=== PATIENT | male | born 1960 | race Two or more races ===

== ENCOUNTER 2024-03-23 13:09 | Outpatient (AMB) | payer MEDICAID, SELFPAY ==
[2024-03-23 13:30] VITALS: BP 121/68; PULSE 90; RESP 18; TEMP 36.7; O2SAT 96; BMI 20.6
--- NOTE | 2024-03-23 13:30 | PD.RESCLINIC ---
Vital Signs 03/23/24 13:30 Height 1.83 m Height Method Stated Weight 69.173 kg Weight Measurement Method Standing Scale BMI 20.6 BP 121/68 Blood Pressure Source Automatic Cuff Blood Pressure Location Left Upper Arm Position Sitting Respiration 18 Pulse 90 Pulse Source Monitor Temp 98.1 F Temp Source Oral Pulse Oximetry (%) 96 Oxygen Delivery Method Room Air Allergies/Meds Allergies & Medications Allergies No Known Allergies Allergy (Verified 03/23/24 13:31) Medication Reconciliation blood-glucose sensor (FreeStyle Meg 3 Sensor device) #2 ea 11/03/23 [Rx Confirmed 03/23/24] ferrous sulfate 325 mg (65 mg iron) tablet,delayed release 325 mg PO TID #90 tabs 11/03/23 [Rx Confirmed 03/23/24] insulin degludec 100 unit/mL (3 mL) subcutaneous pen (Tresiba FlexTouch U-100 insulin) 15 unit (0.15 mL) subcut QHS 90 days #15 mL 11/03/23 [Rx Confirmed 03/23/24] ketoconazole 2 % topical cream 1 applic topical BID #60 grams 11/03/23 [Rx Confirmed 03/23/24] lisinopril 40 mg tablet 40 mg PO QDAY #30 tabs 11/03/23 [Rx Confirmed 03/23/24] pen needle, diabetic 29 gauge x 1/2 (Comfort EZ Pen [place]) #100 ea 11/03/23 [Rx Confirmed 03/23/24] polyethylene glycol 3350 17 gram/dose oral powder 4 g PO QDAY #238 grams 11/03/23 [Rx Confirmed 03/23/24] sennosides 8.6 mg capsule (senna) 8.6 mg PO QDAY PRN constipation #30 caps 11/03/23 [Rx Confirmed 03/23/24] erythromycin 5 mg/gram (0.5 %) eye ointment 0.5 inch ophthalmic (eye) BID #3.5 grams 12/11/23 [Rx Confirmed 03/23/24] atorvastatin 40 mg tablet 40 mg PO QHS #30 tabs 03/23/24 [Rx] fluconazole 200 mg tablet 200 mg PO TID #90 tabs 03/23/24 [Rx] gabapentin 100 mg capsule 300 mg (3 x 100 mg) PO BID 30 days #180 caps 03/23/24 [Rx] semaglutide 14 mg tablet (Rybelsus) 14 mg PO QDAY #30 tabs 03/23/24 [Rx] NIC Intake Visit Data Collection New Patient or Established: Established Patient (seen at [facility] within 3 years) Seen by Clinical Staff ONLY (RN/NIC): No Pain Present Currently: No Pain scale:: 0 Pain Scale Used: Schrader-Mccann/Numerical PCP or OBGYN visit in last 3 months: Yes Do You Feel Safe at Home: Yes Authorities Contacted: N/A Smoking Status Smoking Status: Former smoker Immunization / Flu Flu Vaccine in the Last 12 Months: No Flu Vaccine Exclusion Criteria: No Exclusion Criteria Past Medical History Past Medical History NEUROLOGIC: Negative Neurological Disorders or Seizures CARDIAC: Positive Cardiac Disorders and Hypertension; Negative Congestive Heart Failure RESPIRATORY: Negative Chronic Obstructive Pulmonary Disease (COPD) GASTROINTESTINAL: Negative Gastrointestinal Disorders or Hepatitis GENITOURINARY: Negative Genitourinary Disorders or Renal Disease ENT: Negative Cataracts, Glaucoma, Blind, Retinal Detachment, Macular Degeneration, Ear Infection or Deafness ENDOCRINE: Positive Endocrine Disorders and Diabetes Mellitus Type 2; Negative Diabetes Mellitus Type 1 HEMATOLOGIC: Positive Blood Disorders and Anemia OTHER HISTORY: Positive Chicken Pox, Measles and Mumps; Negative Hospitalization, Autoimmune Disease, Down Syndrome, Developmental Delay, Shingles, Falls, Blood Transfusions, Anesthesia Reactions, Organ Transplant, Chemotherapy, Radiation Therapy, Hyperbaric Therapy, MRSA, VRSA, Vancomycin-Resistant Enterococci, Clostridium Difficile or Cancer Family History FAMILY HISTORY: Positive Family Gastrointestinal Problems; Negative Family Psychiatric Problems, Family Respiratory Disorders, Family Cardiac Disorders, Family Cancer, Family Surgery or Family Anesthesia Reaction Surgical History SURGICAL: Negative Organ Transplant Social History SMOKING STATUS: Smoking status: Former smoker ALCOHOL: Alcohol Intake: Never HOUSING: Housing: House LIVES WITH: Lives With: Spouse Patient Portal Questionaires PHQ-9 PHQ-2 Over the last 2 weeks, how often have you been bothered by any of the following problems? 1. Little interest or pleasure in doing things: not at all PHQ-9 8. Moving or speaking so slowly that other people could have noticed? - Or the opposite - being so fidgety or restless that you have been moving around a lot more than usual: not at all Source: Developed by Drs. Charly Elizabeth, Mima Blevins, Jonathan Rodriguez and colleagues, with an educational lili from [employer]. Social History Living Situation History Housing: House Housing Other:: Lives w/ Tobacco History Smoking Status: Former smoker Alcohol History Alcohol Intake: Never Domestic Abuse History Do You Feel Safe at Home: Yes Review of Systems Report any current symptoms Only answer those that you have currently: Past Medical History Past Medical History Have you ever been diagnosed with any of the following: Neurological Problems Seizures: No Cardiology Problems Congestive Heart Failure: No Hypertension: Yes Respiratory Problems Chronic Obstructive Pulmonary Disease (COPD): No Stomache/Intestinal Problems Hepatitis: No Genital/Urinary Problems Renal Disease: No Head,Eye,Nose,Throat Problems Cataracts: No Glaucoma: No Blind: No Retinal Detachment: No Macular Degeneration: No Chronic Ear Infections: No Deafness: No Endocrine Problems Diabetes Mellitus Type 1: No Diabetes Mellitus Type 2: Yes Blood Problems Anemia: Yes Other Problems Hospitalization: No Autoimmune Disease: No Down Syndrome: No Developmental Delay: No Shingles: No Falls: No Blood Transfusions: No Anesthesia Reactions: No Organ Transplant: No Chemotherapy: No Radiation Therapy: No Hyperbaric Therapy: No MRSA: No VRSA: No Vancomycin-Resistant Enterococci: No Chicken Pox: Yes Measles: Yes Mumps: Yes Clostridium Difficile: No Cancer: No History of Present Illness HPI Narrative 63-year-old male with past medical history of diabetes type 2 and valley fever [facility] his 3-month follow-up appointment and for x-ray results. Patient's foot x-ray did not show any osteomyelitis. Patient stated that he saw his senior managing director around 3 weeks ago and got his toenails clipped and that his senior managing director told him that everything was okay at this time. Today's patient's toe did not look discolored and was not tender on palpation. Patient also stated that he saw his information technology advisor around 1 month ago who orders multiple labs for him. I reviewed the patient's labs with him. Patient stated that his information technology advisor increased his dosage of Jardiance to 25 mg daily. He also mentioned that he saw his astronomy department chair who stated that he needs to be on fluconazole indefinitely at this time. Patient has an pellet press operator appointment due on April. He states that he is up-to-date on all his vaccines. And that his colonoscopy was last year and everything was within normal limits. No other complaints at this time. Review of Systems Review of Systems Narrative Review of Systems: Constitutional: Denies sweats, Denies weight loss/gain, Denies fever, Denies chills. HEENT: Denies hearing loss, Denies ear pain, Denies postnasal drip, Denies double vision, Denies blurry vision. Respiratory: Denies shortness of breath, Denies cough, Denies wheezing. Cardiovascular: Denies chest pain, Denies palpitations, Denies sudden loss of consciousness. GI: Denies blood in stool, Denies constipation, Denies abdominal pain, Denies difficulty swallowing, Denies nausea or vomit. : Denies urinary incontinence, Denies pain while urinating, Denies increased urinary frequency. MSK: Denies joint pain, Denies joint swelling, Denies numbness. Skin: Denies rash, Denies itching, Denies easy bruising. Neuro: Denies headaches, Denies dizziness, Denies seizures. Objective/Exam General General Appearance: alert, in no apparent distress and cooperative Head Head exam: atraumatic and normocephalic Eye Eye exam: Present normal appearance, PERRL and EOMI ENT ENT exam: Present normal exam, normal oropharynx and mucous membranes dry Neck Neck exam: Present normal inspection, full ROM and trachea midline Resp Respiratory exam: Present normal lung sounds bilaterally Card Cardiovascular exam: Present regular rate, normal rhythm and normal heart sounds Abdominal Abdominal exam: Present soft and normal bowel sounds Extremities Extremities exam: Present normal inspection and full ROM Exp LE Foot/toe exam: Present other (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 ) Neuro Neurological exam: Present alert, oriented X3 and CN II-XII intact Psych Psychiatric exam: Present normal affect and normal mood Assessment & Plan Diagnosis / Problem List (1) Diabetes mellitus: Status: Acute Qualifiers: Diabetes mellitus complication status: without complication Diabetes mellitus terminal operations supervisor insulin use: with fdc use Diabetes mellitus type: type 2 Qualified Code(s): E11.9 - Type 2 diabetes mellitus without complications; Z79.4 - computer terminal operator (current) use of insulin Assessment & Plan: -Last A1c on 02/06/24 was 8.2% -Patient states his sugars have been well controlled and he has not done anything different -His information technology advisor increased his Jiardance to 25mg -Last saw his senior managing director 3 weeks ago -Will see ophtalmologist in April Plan: -Continue jardiance 25mg -Increased Rybelsus to 14mg -Continue Insulin 15 mg qHS, advised to titrate down by one unit each day is BG in morning is less than 100. (2) Hyperlipemia: Status: Acute Qualifiers: Hyperlipidemia type: mixed hyperlipidemia Qualified Code(s): E78.2 - Mixed hyperlipidemia Assessment & Plan: -Cholesterol 223, LDL 160, HDL 38 on 02/06/2024 Plan: -Start Atorvastatin 40mg HS (3) Coccidioidomycosis, chronic pulmonary: Status: Acute Assessment & Plan: -Per patient, he states that his astronomy department chair stated he needs treatment indefinitely for his Cocci. Plan: -Refill fluconazol -Will ask for documents from pulmonoligist. Additional Assessment Attending note: I, Enoch Headley MD, attest that I was physically present for the paulino portions of the service and evaluated the patient with the resident and I reviewed and discussed the case with the resident and agree with the resident's findings and plans of care as documented above. Follow-up visit. Review of prior x-ray revealed no evidence of osteomyelitis. Did see podiatry approximately 3 weeks ago. Following with nephrology. Dose of Jardiance increased to 25 mg daily. Skate Maker wants patient on fluconazole indefinitely. Diet, exercise, footcare, eye care reviewed. We will also increase the dose of Rybelsus. Start atorvastatin for hyperlipidemia. Enoch Headley MD Physician Billing Established Patient Established Patient: E/M Level 3-CPT 45107 Office Procedures [facility] Level of Care Nursing/Assessment Patient Status: Established Patient Nursing Assessment/Reassessment: Medication Reconciliation, Update PMH in EMR and Vital Signs Coordination of Care: Complex Care and Chronic Disease 1-5, Education Complex Pt/Fam and Staff clarify orders Established Patient Charge Established Patient Point Assignment: 85 Established Patient Point Charge: EP Level 3 (80-115)
== END 2024-03-23 14:22 | disposition home or self-care (01) ==
LOC: HODAHC 13:09
PROVIDERS: PCP Internal Medicine; Referring Provider Internal Medicine; Supervising Provider Internal Medicine
DX: B38.9 Coccidioidomycosis, unspecified (principal); E11.9 Type 2 diabetes mellitus without complications; E78.5 Hyperlipidemia, unspecified; Z79.4 Long term (current) use of insulin; Z79.84 Long term (current) use of oral hypoglycemic drugs
CPT/HCPCS: 99213; G0463

== ENCOUNTER 2024-04-27 14:01 | Outpatient (AMB) | payer MEDICAID, SELFPAY ==
--- NOTE | 2024-04-27 14:08 | PD.RESCLINIC ---
Vital Signs 04/27/24 14:09 Height 1.83 m Height Method Stated Weight 66.224 kg Weight Measurement Method Standing Scale BMI 19.8 BP 99/65 Blood Pressure Source Automatic Cuff Blood Pressure Location Left Upper Arm Position Sitting Respiration 16 Pulse 74 Pulse Source Monitor Temp 97.9 F Temp Source Temporal Artery Scan Pulse Oximetry (%) 98 Oxygen Delivery Method Room Air Allergies/Meds Allergies & Medications Allergies No Known Allergies Allergy (Verified 04/27/24 14:09) Medication Reconciliation blood-glucose sensor (FreeStyle Meg 3 Sensor device) #2 ea 11/03/23 [Rx Confirmed 03/23/24] ferrous sulfate 325 mg (65 mg iron) tablet,delayed release 325 mg PO TID #90 tabs 11/03/23 [Rx Confirmed 04/27/24] insulin degludec 100 unit/mL (3 mL) subcutaneous pen (Tresiba FlexTouch U-100 insulin) 15 unit (0.15 mL) subcut QHS 90 days #15 mL 11/03/23 [Rx Confirmed 04/27/24] ketoconazole 2 % topical cream 1 applic topical BID #60 grams 11/03/23 [Rx Confirmed 04/27/24] lisinopril 40 mg tablet 40 mg PO QDAY #30 tabs 11/03/23 [Rx Confirmed 04/27/24] pen needle, diabetic 29 gauge x 1/2 (Comfort EZ Pen [place]) #100 ea 11/03/23 [Rx Confirmed 03/23/24] polyethylene glycol 3350 17 gram/dose oral powder 4 g PO QDAY #238 grams 11/03/23 [Rx Confirmed 04/27/24] sennosides 8.6 mg capsule (senna) 8.6 mg PO QDAY PRN constipation #30 caps 11/03/23 [Rx Confirmed 04/27/24] erythromycin 5 mg/gram (0.5 %) eye ointment 0.5 inch ophthalmic (eye) BID #3.5 grams 12/11/23 [Rx Confirmed 04/27/24] fluconazole 200 mg tablet 200 mg PO TID #90 tabs 03/23/24 [Rx Confirmed 04/27/24] atorvastatin 40 mg tablet 40 mg PO QHS #30 tabs 04/27/24 [Rx] gabapentin 100 mg capsule 300 mg (3 x 100 mg) PO TID 30 days #270 caps 04/27/24 [Rx] semaglutide 14 mg tablet (Rybelsus) 14 mg PO QDAY #30 tabs 04/27/24 [Rx] MA Intake Visit Data Collection New Patient or Established: Established Patient (seen at [facility] within 3 years) Pain Present Currently: No Pain Scale Used: Schrader-Mccann/Numerical Php Wordpress Developer Required: No PCP or OBGYN visit in last 3 months: No Hx Now: No Do You Feel Safe at Home: Yes Authorities Contacted: N/A Smoking Status Smoking Status: Former smoker Immunization / Flu Flu Vaccine in the Last 12 Months: Yes Flu Vaccine Exclusion Criteria: Already Received Past Medical History Past Medical History NEUROLOGIC: Negative Neurological Disorders or Seizures CARDIAC: Positive Cardiac Disorders and Hypertension; Negative Congestive Heart Failure RESPIRATORY: Negative Chronic Obstructive Pulmonary Disease (COPD) GASTROINTESTINAL: Negative Gastrointestinal Disorders or Hepatitis GENITOURINARY: Negative Genitourinary Disorders or Renal Disease ENT: Negative Cataracts, Glaucoma, Blind, Retinal Detachment, Macular Degeneration, Ear Infection or Deafness ENDOCRINE: Positive Endocrine Disorders and Diabetes Mellitus Type 2; Negative Diabetes Mellitus Type 1 HEMATOLOGIC: Positive Blood Disorders and Anemia OTHER HISTORY: Positive Chicken Pox, Measles and Mumps; Negative Hospitalization, Autoimmune Disease, Down Syndrome, Developmental Delay, Shingles, Falls, Blood Transfusions, Anesthesia Reactions, Organ Transplant, Chemotherapy, Radiation Therapy, Hyperbaric Therapy, MRSA, VRSA, Vancomycin-Resistant Enterococci, Clostridium Difficile or Cancer Family History FAMILY HISTORY: Positive Family Gastrointestinal Problems; Negative Family Psychiatric Problems, Family Respiratory Disorders, Family Cardiac Disorders, Family Cancer, Family Surgery or Family Anesthesia Reaction Surgical History SURGICAL: Negative Organ Transplant Social History SMOKING STATUS: Smoking status: Former smoker ALCOHOL: Alcohol Intake: Never HOUSING: Housing: House LIVES WITH: Lives With: Spouse Patient Portal Questionaires PHQ-9 PHQ-2 Over the last 2 weeks, how often have you been bothered by any of the following problems? 1. Little interest or pleasure in doing things: not at all PHQ-9 8. Moving or speaking so slowly that other people could have noticed? - Or the opposite - being so fidgety or restless that you have been moving around a lot more than usual: not at all Source: Developed by Drs. Charly Elizabeth, Mima Blevins, Jonathan Rodriguez and colleagues, with an educational lili from [employer]. Social History Living Situation History Housing: House Housing Other:: Lives w/ Tobacco History Smoking Status: Former smoker Alcohol History Alcohol Intake: Never Domestic Abuse History Do You Feel Safe at Home: Yes Review of Systems Report any current symptoms Only answer those that you have currently: Past Medical History Past Medical History Have you ever been diagnosed with any of the following: Neurological Problems Seizures: No Cardiology Problems Congestive Heart Failure: No Hypertension: Yes Respiratory Problems Chronic Obstructive Pulmonary Disease (COPD): No Stomache/Intestinal Problems Hepatitis: No Genital/Urinary Problems Renal Disease: No Head,Eye,Nose,Throat Problems Cataracts: No Glaucoma: No Blind: No Retinal Detachment: No Macular Degeneration: No Chronic Ear Infections: No Deafness: No Endocrine Problems Diabetes Mellitus Type 1: No Diabetes Mellitus Type 2: Yes Blood Problems Anemia: Yes Other Problems Hospitalization: No Autoimmune Disease: No Down Syndrome: No Developmental Delay: No Shingles: No Falls: No Blood Transfusions: No Anesthesia Reactions: No Organ Transplant: No Chemotherapy: No Radiation Therapy: No Hyperbaric Therapy: No MRSA: No VRSA: No Vancomycin-Resistant Enterococci: No Chicken Pox: Yes Measles: Yes Mumps: Yes Clostridium Difficile: No Cancer: No History of Present Illness HPI Narrative 63-year-old male with past medical history of diabetes type 2 and valley fever who [facility] for his F/U after starting atorvastatin. Patient states he has been feeling well with no new complaints. Satated he had a good holidays and did not deviate from his eating habits. His BG was checked on his free style meg geni and ranged from 100-160 with avg A1c of 7%. He mentioned he has been using only 10units of insulin glargine at night and has been decreasing it as mentioned on previous visit with better control of his BG. HE has not had any muscle aches since he started atorvastatin and has tolerated it well. Patient saw his face burler yesterday and will be getting a procedure done in the upcoming months as per patient and as per patient everything was well on this visit. He is still experiencing burning pain in his feet likely due to neuropathy. HAs also noticed SOB will working since he was diagnosed with Valley fever, but no cough, fever, or LE swelling. No other complaint at this time. Will have labs done by his sound technician supervisor in the next month. Review of Systems Review of Systems Narrative Review of Systems: Constitutional: Denies sweats, Denies weight loss/gain, Denies fever, Denies chills. HEENT: Denies hearing loss, Denies ear pain, Denies postnasal drip, Denies double vision, Denies blurry vision. Respiratory: Admits shortness of breath, Denies cough, Denies wheezing. Cardiovascular: Denies chest pain, Denies palpitations, Denies sudden loss of consciousness. GI: Denies blood in stool, Denies constipation, Denies abdominal pain, Denies difficulty swallowing, Denies nausea or vomit. : Denies urinary incontinence, Denies pain while urinating, Denies increased urinary frequency. MSK: Denies joint pain, Denies joint swelling, Denies numbness. Skin: Denies rash, Denies itching, Denies easy bruising. Neuro: Denies headaches, Denies dizziness, Denies seizures, Admits neuropathy pain. Objective/Exam General General Appearance: alert, in no apparent distress and cooperative Head Head exam: atraumatic and normocephalic Eye Eye exam: Present normal appearance, PERRL and EOMI ENT ENT exam: Present normal exam, normal oropharynx and mucous membranes dry Neck Neck exam: Present normal inspection, full ROM and trachea midline Resp Respiratory exam: Present normal lung sounds bilaterally Card Cardiovascular exam: Present regular rate, normal rhythm and normal heart sounds Abdominal Abdominal exam: Present soft and normal bowel sounds Extremities Extremities exam: Present normal inspection and full ROM Exp LE Foot/toe exam: Present other (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 ) Neuro Neurological exam: Present alert, oriented X3 and CN II-XII intact Psych Psychiatric exam: Present normal affect and normal mood Assessment & Plan Diagnosis / Problem List (1) Diabetes mellitus: Status: Acute Qualifiers: Diabetes mellitus type: type 2 Diabetes mellitus intermediate teacher insulin use: with penitentiary use Diabetes mellitus complication status: without complication Qualified Code(s): E11.9 - Type 2 diabetes mellitus without complications; Z79.4 - prison (current) use of insulin Assessment & Plan: -Last A1c on 02/06/24 was 8.2%, will get repeat by sound technician supervisor next month -Patient states his sugars have been well controlled and he has not done anything different -His sound technician supervisor increased his Jiardance to 25mg -Saw face burler yesterday. BG 100-160 after free style meg review Plan: -Continue jardiance 25mg -Continue Rybelsus to 14mg -Continue Insulin 10 mg qHS, advised to titrate down by one unit each day is BG in morning is less than 100. (2) Hyperlipemia: Status: Acute Qualifiers: Hyperlipidemia type: mixed hyperlipidemia Qualified Code(s): E78.2 - Mixed hyperlipidemia Assessment & Plan: -Cholesterol 223, LDL 160, HDL 38 on 02/06/2024 -Tolerating well the atorvastatin Plan: -Continue Atorvastatin 40mg HS (3) Coccidioidomycosis, chronic pulmonary: Status: Acute Assessment & Plan: -Per patient, he states that his guitar repairer stated he needs treatment indefinitely for his Cocci. Plan: -Continue fluconazole (4) Peripheral neuropathy: Status: Acute Qualifiers: Peripheral neuropathy type: polyneuropathy, unspecified Qualified Code(s): G62.9 - Polyneuropathy, unspecified Assessment & Plan: -Has been experiencing burning pain in SHIELA feet Plan: Increased gabapentin to 300 TID Office Procedures [facility] Level of Care Nursing/Assessment Patient Status: Established Patient Nursing Assessment/Reassessment: Medication Reconciliation, Update PMH in EMR and Vital Signs Coordination of Care: Complex Care and Chronic Disease 1-5, Education Simp Pt/Fam and Staff clarify orders Special Needs: Language special needs Established Patient Charge Established Patient Point Assignment: 80 Established Patient Point Charge: Level 3 (80-115)
[2024-04-27 14:09] VITALS: BP 99/65; PULSE 74; RESP 16; TEMP 36.6; O2SAT 98; BMI 19.8
== END 2024-04-27 14:29 | disposition home or self-care (01) ==
LOC: HODAHC 14:01
PROVIDERS: Supervising Provider Internal Medicine
DX: E78.5 Hyperlipidemia, unspecified (principal); B38.1 Chronic pulmonary coccidioidomycosis; G62.9 Polyneuropathy, unspecified
CPT/HCPCS: 99213; G0463

== ENCOUNTER 2024-05-20 13:55 | Emergency (ER) | payer MEDICAID, SELFPAY ==
[2024-05-20 14:22] VITALS: BP 163/65; PULSE 88; RESP 18; TEMP 36.5; O2SAT 95; BMI 19.8
--- NOTE | 2024-05-20 14:25 | XR_ITS ---
Examination: Foot, left, 3 views Technique: AP, oblique, lateral views foot, 3 views Date and time of exam: May 20, 2024 1430 hours INDICATIONS: Injury to the foot last week, foot pain FINDINGS: Prominent osteopenia Chronic erosive change distal phalanx fifth digit No acute fracture Soft tissue vascular calcification Early cortical erosions ungual tuft tip distal phalanx second digit IMPRESSION: Osteomyelitis ungual tuft tip distal phalanx second digit Consider MRI foot without contrast follow-up
--- NOTE | 2024-05-20 14:27 | PD.EDRME ---
Rapid Medical Screening Exam [facility] Arrival date/time: 05/20/24 13:55 63-year-old male with a history of hyperlipidemia, type 2 diabetes, hypertension presents to the emergency room with a chief complaint of a black toe to his left foot. It is a second digit on his left foot patient states for the last 3 days it has turned black with foul smell. I have greeted and performed a focused initial assessment of this patient. A comprehensive ED assessment and evaluation of the patient, analysis of all test results, and completion of the medical decision making process will be conducted by additional ED providers. Chief Complaint: Ankle/Foot Injury Vital signs: Vital Signs Temperature 97.7 F 05/20/24 14:22 Pulse Rate 88 05/20/24 14:22 Respiratory Rate 18 05/20/24 14:22 Blood Pressure 163/65 H 05/20/24 14:22 Pulse Oximetry (%) 95 05/20/24 14:22 Oxygen Delivery Method Room Air 05/20/24 14:22 Vital signs reviewed by provider: Yes
[2024-05-20 15:09] LABS: Lactate (Lactic Acid) 1.1 mMol/L (0.4-2.0)
[2024-05-20 15:11] LABS: Basophils # (Auto) 0.1 Thou/mm3 (0.0-0.2); Basophils % (Auto) 1 % (0-2.5); Eosinophils # (Auto) 0.3 Thou/mm3 (0.0-0.5); Eosinophils % (Auto) 4 % (0-10); Hematocrit 38.5 % (41.0-53.0); Hemoglobin 12.7 g/dL (13.5-16.0); Immature Granulocytes % (Auto) 0 % (0-0); Immature Granulocytes Auto 0.02 Thou/mm3 (0.00-0.00); Lymphocytes # (Auto) 1.5 Thou/mm3 (1.0-4.8); Lymphocytes % (Auto) 22 % (10-50); Mean Corpuscular Volume 91 fL (80-100); Monocytes # (Auto) 0.6 Thou/mm3 (0.0-0.8); Monocytes % (Auto) 9 % (0-12); Neutrophils # (Auto) 4.6 Thou/mm3 (1.8-7.7); Neutrophils % (Auto) 65 % (37-80); Nucleated Red Blood Cell % 0 /100 WBC (0); Platelet Count 396 Thou/mm3 (140-440); RDW Standard Deviation 47.5 fL (35.1-43.9); Red Blood Count 4.23 Miln/mm3 (4.50-5.90); White Blood Count 7.1 Thou/mm3 (3.8-10.6)
[2024-05-20 15:25] LABS: Sed Rate (ESR) 17 mm/hr (0-20)
[2024-05-20 15:42] VITALS: BP 151/69; PULSE 76; RESP 16; TEMP 36.7; O2SAT 97
[2024-05-20 16:00] LABS: Alanine Aminotransferase 26 U/L (10-49); Albumin/Globulin Ratio 1.8 (1.2-2.2); Alkaline Phosphatase 105 U/L (46-116); Anion Gap 6 (7-16); Aspartate Amino Transferase 27 U/L (0-34); BUN/Creatinine Ratio 25 Ratio (12-20); Bilirubin,Total 0.2 mg/dL (0.3-1.2); Blood Urea Nitrogen 30 mg/dL (9-23); Carbon Dioxide 28.1 mMol/L (20.0-31.0); Chloride 104 mMol/L (98-107); Creatinine (Component) 1.2 mg/dL (0.6-1.3); Estimated Creatinine Clearance 58.3 mL/min (>60); Globulin 2.2 gm/dL (2.3-3.5); Glucose 163 mg/dL (74-106); Osmolality,Calculated 285 (275-295); Potassium 4.9 mMol/L (3.4-5.1); Procalcitonin 0.06 ng/ml (0.0-0.49); Sodium 138 mMol/L (136-145); Total Protein 6.2 gm/dL (5.7-8.2); eGFR > 60 See Note
[2024-05-20 16:16] LABS: C-Reactive Protein 0.5 mg/dL (0.0-0.9)
[2024-05-20 16:54] VITALS: BP 184/75; PULSE 79; RESP 16; O2SAT 99
--- NOTE | 2024-05-20 16:56 | PD.EDANKLE ---
Lower Extremity Injury RME/HPI General Chief Complaint: Ankle/Foot Injury Stated Complaint: LEFT TOE PURPLE X 2 DAYS; DIABETIC Time Seen by Provider: 05/20/24 16:11 Arrival date/time: 05/20/24 13:55 RME / HPI RME / HPI Narrative: 63-year-old male patient with significant history of hyperlipidemia and type 2 diabetes mellitus hypertension, was brought in for evaluation regarding left second to gangrene. Been having redness and swelling, for the last 2 to 3 weeks, getting worst over time. Patient was seen by vascular surgeon 3 days ago and told me that only 1 arteries cleared by the 2 other arteries are working well. Was seen by base loader today Dr. Reynoso, and send the patient to us for further management. Denies any fever denies any other complaints. Related Data Previous Rx's ?Medication ?Instructions ?Recorded blood-glucose sensor (FreeStyle #2 ea 11/03/23 Meg 3 Sensor device) ferrous sulfate 325 mg (65 mg 325 mg PO TID #90 tabs 11/03/23 iron) tablet,delayed release insulin degludec 100 unit/mL (3 15 unit (0.15 mL) subcut QHS 90 11/03/23 mL) subcutaneous pen ( #15 mL FlexTouch U-100 insulin) ketoconazole 2 % topical cream 1 applic topical BID #60 grams 11/03/23 lisinopril 40 mg tablet 40 mg PO QDAY #30 tabs 11/03/23 pen needle, diabetic 29 gauge x #100 ea 11/03/23 1/2 (Comfort EZ Pen Caspian) polyethylene glycol 3350 17 4 g PO QDAY #238 grams 11/03/23 gram/dose oral powder sennosides 8.6 mg capsule (senna) 8.6 mg PO QDAY PRN constipation 11/03/23 #30 caps erythromycin 5 mg/gram (0.5 %) eye 0.5 inch ophthalmic (eye) BID #3.5 12/11/23 ointment grams fluconazole 200 mg tablet 200 mg PO TID #90 tabs 03/23/24 atorvastatin 40 mg tablet 40 mg PO QHS #30 tabs 04/27/24 gabapentin 100 mg capsule 300 mg (3 x 100 mg) PO TID 30 days 04/27/24 #270 caps semaglutide 14 mg tablet (Rybelsus) 14 mg PO QDAY #30 tabs 04/27/24 clindamycin HCl 300 mg capsule 300 mg PO TID #30 caps 05/20/24 pentoxifylline 400 mg 400 mg PO TID #30 tabs 05/20/24 tablet,extended release Allergies Allergy/AdvReac Type Severity Reaction Status Date / Time No Known Allergies Allergy Verified 05/20/24 13:57 Review of Systems Review of Systems Narrative Review of Systems: Review of system reviewed and within normal limits except mentioned in HPI ED Exam Narrative Physical exam: VITAL SIGNS: Reviewed. GENERAL APPEARANCE: Alert and interactive, follows commands, no acute distress, HEAD AND FACE: Non-traumatic. ENT: PERRL, pink conjunctivitis, eyelid no trauma, Mucous membrane moist. NECK: Supple, nontender, no nuchal rigidity. CHEST: No tenderness, no crepitus, no paradoxical movement, no retractions. LUNGS: Clear, well ventilated, symmetric, no rales, no wheezing, no ronchi, no stridor, good breath sounds bilaterally. HEART: Regular rate, regular rhythm, no murmur, no gallops. ABDOMEN: Soft, positive bowel sounds, nondistended, no guarding, nontender, no rebound, no masses, RECTAL: Deferred. GENITAL: Deferred. NEUROLOGICAL: Gross motor function intact sensory function intact, Appropriate for age. MUSCULOSKELETAL: low back nontender, full range of motion. EXTREMITIES: Left second to distal tip dry ulcer redness and dusky, nontender, full range of motion. SKIN: Color pink, dry, no rash, no lacerations, no abrasions, no contusions. LYMPHATICS: Deferred. Course Quality Measures none Orders Category Date Time Status XR foot comp LT min 3V Stat Exams 05/20/24 14:25 Completed CBC Stat Lab 05/20/24 14:53 Completed CMP [Comprehensive Metabolic Panel] Stat Lab 05/20/24 14:53 Completed CRP [C-Reactive Protein] Stat Lab 05/20/24 14:53 Completed ESR [Sed Rate (ESR)] Stat Lab 05/20/24 14:53 Completed Extra Blue Top for Platelet Routine Lab 05/20/24 14:53 Completed Lactate (Lactic Acid) Stat Lab 05/20/24 14:53 Completed Procalcitonin Stat Lab 05/20/24 14:53 Completed Clindamycin [Cleocin] Med 05/20/24 17:43 Discontinued 300 mg PO X1 ONE Vital Signs Vital signs: Vital Signs Temperature 97.7 F 05/20/24 14:22 Pulse Rate 88 05/20/24 14:22 Respiratory Rate 18 05/20/24 14:22 Blood Pressure 163/65 H 05/20/24 14:22 Pulse Oximetry (%) 95 05/20/24 14:22 Oxygen Delivery Method Room Air 05/20/24 14:22 Extremity Injury, Lower MDM Narrative [facility] Narrative:: 63-year-old male patient with significant history of hyperlipidemia and type 2 diabetes mellitus hypertension, was brought in for evaluation regarding left second to gangrene. Been having redness and swelling, for the last 2 to 3 weeks, getting worst over time. Patient was seen by vascular surgeon 3 days ago and told me that only 1 arteries 1 artery is clogged but the 2 other arteries are working well. Was seen by base loader today Dr. Reynoso, and send the patient to us for further management. Denies any fever denies any other complaints. Denies any fever. Patient's workup today all came back unremarkable no leukocytosis, LFTs are normal except for x-ray of the foot which showed possible osteomyelitis second to distal phalanx. Results discussed with the patient and family. Patient was given clindamycin p.o. in the emergency room. Patient was advised to follow-up with Dr. Reynoso, base loader, next week. Patient stable for discharge home patient is not having wet gangrene, is having dry gangrene of the tip of the toe Patient appears nontoxic and hemodynamically stable. Patient discharged home and instructed to follow-up with primary care provider in 24 to 48 hours. Instructed to return to the emergency department immediately if worsening of symptoms Patient data External records reviewed:: None Clinical information provided by:: none Social determinants that could affect healthcare access:: none Patient has the following chronic illnesses:: Hypertension diabetes mellitus How is presenting disease/condition affected by chronic disease/condition?: exacerbated by Evaluation data The following diagnostics were reviewed and interpreted by me:: lab results and radiology exam(s) Lab and/or radiology exams considered but not ordered:: None Interpretation Summary: See results in MDM Medications / Prescriptions Medications or Prescriptions considered but not ordered:: None Medication administrations:: Medication Administration History Discontinued Medications Clindamycin HCl (Clindamycin 150 Mg Capsule) 300 mg PO X1 ONE Stop: 05/20/24 17:44 Clindamycin Consultations Consultation(s) initiated? (list below): Yes Consultation #1 (Physician, Specialty, Details): I tried to call Dr. Reynoso, waited for more than 1 hour, no response, Diagnosis Extremity Injury, Lower Differential Diagnosis: other (Diabetic toe infection, diabetic toe gangrene, chronic infection toe, osteomyelitis distal phalanx second toe) Most likely diagnosis given after review of the tests above:: Diabetic toe ulcer, osteomyelitis Admission Indicated Admission indicated?: not indicated Explain why admission is indicated or not indicated:: Stable Admission Request Was there a request for admission?: No Disposition Plan Disposition Plan: Discharge Discharge Attestation Discharge Attestation: The patient and all family members were given an opportunity to ask questions and understood the discharge instructions. Discharge instructions specifically effects, indications for sooner follow up or return to the emergency department, and the expected course of current diagnosis. Patient condition: Stable Discharge Plan Plan Patient Disposition: HOME (Self Care) Disposition Comment: stable Prescriptions/Referrals Prescriptions/Med Rec: New clindamycin HCl 300 mg capsule 300 mg PO TID Qty: 30 0RF pentoxifylline 400 mg tablet extended release 400 mg PO TID Qty: 30 0RF Rx Instructions: must administer with a meal/food No Action fluconazole 200 mg tablet 200 mg PO TID MDD 600 mg Qty: 90 1RF Rx Instructions: Take 2 tablets in the morning and 1 tablet in the afternoon atorvastatin 40 mg tablet 40 mg PO QHS Qty: 30 2RF gabapentin 100 mg capsule 300 mg PO TID 30 Days Qty: 270 3RF Rybelsus 14 mg tablet 14 mg PO QDAY Qty: 30 2RF (DME) FreeStyle Meg 3 Sensor Device See Rx Instructions .Route Qty: 2 5RF Rx Instructions: As directed ferrous sulfate 325 mg (65 mg iron) tablet,delayed release (DR/EC) 325 mg PO TID Qty: 90 3RF insulin degludec [Tresiba FlexTouch U-100] 100 unit/mL (3 mL) insulin pen 15 unit subcut QHS 90 Days Qty: 15 1RF ketoconazole 2 % cream 1 applic topical BID Qty: 60 0RF Rx Instructions: Aplicar en la area afectada 2 veces al fidelina. lisinopril 40 mg tablet 40 mg PO QDAY Qty: 30 5RF (DME) pen needle, diabetic [Comfort EZ Pen Caspian] 29 gauge x 1/2 needle See Rx Instructions .Route Qty: 100 3RF Rx Instructions: As directed polyethylene glycol 3350 17 gram/dose powder 4 g PO QDAY Qty: 238 3RF senna 8.6 mg capsule 8.6 mg PO QDAY PRN (Reason: constipation) Qty: 30 0RF erythromycin 5 mg/gram (0.5 %) ointment 0.5 inch ophthalmic (eye) BID Qty: 3.5 1RF Rx Instructions: Apply 0.5 inches to affected eye twice daily Referrals: Dinesh Peng MD [Primary Care Provider] - In 1 week Problem List Clinical Impression: Diabetic toe ulcer, Osteomyelitis Patient/Caregiver Discharge Instructions Discharge Activity: activity as tolerated Education Materials: Foot Care Diabetes Steps Additional Instructions: Thank you for the opportunity for serving you today. You are stable for discharged . You are advised to: Follow-up with your podiatry next week Return to ED for worsening of symptoms Increase oral fluids Take medication as prescribed Continue dressing your to as instructed by your base loader Print Language: Croatian Stand Alone Forms: Tiny Award Info., Patient Portal Info Letter PA/ONEYDA Supervising Physician PA/ONEYDA Supervising Physician: MD Elsie
--- NOTE | 2024-05-20 16:56 | PC.NURSE ---
pt sent by foot doctor due to blackness to left 2nd toe X 3 days, redness X 1 week s/p injury 3 weeks ago. States had blood test done at [facility] yesterday and was in the E.D. for high potassium
[2024-05-20] MEDS: CLINDAMYCIN 150 MG CAPSULE 300 MG PO (18:05)
== END 2024-05-20 18:09 | disposition home or self-care (01) ==
PROVIDERS: Nurse Practitioner Family; Emergency Provider Emergency Medicine
DX: E11.621 Type 2 diabetes mellitus with foot ulcer (principal); L97.529 Non-pressure chronic ulcer of other part of left foot with unspecified severity; E11.69 Type 2 diabetes mellitus with other specified complication; M86.8X7 Other osteomyelitis, ankle and foot; Z79.4 Long term (current) use of insulin
CPT/HCPCS: 36415; 73630; 80053; 83605; 84145; 85025; 85652; 86140; 99283; A9270

== ENCOUNTER 2024-05-21 13:24 | Outpatient (AMB) | payer MEDICAID, SELFPAY ==
--- NOTE | 2024-05-21 13:32 | ACNOTE_ITS ---
Vital Signs 05/21/24 13:33 Height 1.78 m Height Method Stated Weight 65.374 kg Weight Measurement Method Standing Scale BMI 20.7 BP 128/62 Blood Pressure Source Automatic Cuff Blood Pressure Location Left Upper Arm Position Sitting Respiration 16 Pulse 84 Pulse Source Monitor Temp 98.1 F Temp Source Oral Pulse Oximetry (%) 95 Oxygen Delivery Method Room Air Allergies/Meds Allergies & Medications Allergies No Known Allergies Allergy (Verified 05/21/24 13:34) Medication Reconciliation blood-glucose sensor (FreeStyle Meg 3 Sensor device) #2 ea 11/03/23 [Rx Confirmed 05/21/24] ferrous sulfate 325 mg (65 mg iron) tablet,delayed release 325 mg PO TID #90 tabs 11/03/23 [Rx Confirmed 05/21/24] insulin degludec 100 unit/mL (3 mL) subcutaneous pen (Tresiba FlexTouch U-100 insulin) 15 unit (0.15 mL) subcut QHS 90 days #15 mL 11/03/23 [Rx Confirmed 05/21/24] ketoconazole 2 % topical cream 1 applic topical BID #60 grams 11/03/23 [Rx Confirmed 05/21/24] lisinopril 40 mg tablet 40 mg PO QDAY #30 tabs 11/03/23 [Rx Confirmed 05/21/24] Held on 05/21/24. Instructions: Hyperkalemia pen needle, diabetic 29 gauge x 1/2 (Comfort EZ Pen Hardy) #100 ea 11/03/23 [Rx Confirmed 05/21/24] polyethylene glycol 3350 17 gram/dose oral powder 4 g PO QDAY #238 grams 11/03/23 [Rx Confirmed 05/21/24] sennosides 8.6 mg capsule (senna) 8.6 mg PO QDAY PRN constipation #30 caps 11/03/23 [Rx Confirmed 05/21/24] erythromycin 5 mg/gram (0.5 %) eye ointment 0.5 inch ophthalmic (eye) BID #3.5 grams 12/11/23 [Rx Confirmed 05/21/24] fluconazole 200 mg tablet 200 mg PO TID #90 tabs 03/23/24 [Rx Confirmed 05/21/24] atorvastatin 40 mg tablet 40 mg PO QHS #30 tabs 04/27/24 [Rx Confirmed 05/21/24] gabapentin 100 mg capsule 300 mg (3 x 100 mg) PO TID 30 days #270 caps 04/27/24 [Rx Confirmed 05/21/24] semaglutide 14 mg tablet (Rybelsus) 14 mg PO QDAY #30 tabs 04/27/24 [Rx Confirmed 05/21/24] clindamycin HCl 300 mg capsule 300 mg PO TID #30 caps 05/20/24 [Rx Confirmed 05/21/24] pentoxifylline 400 mg tablet,extended release 400 mg PO TID #30 tabs 05/20/24 [Rx Confirmed 05/21/24] amlodipine 10 mg tablet 10 mg PO QDAY #30 tabs 05/21/24 [Rx] MA Intake Visit Data Collection New Patient or Established: Established Patient (seen at [facility] within 3 years) Seen by Clinical Staff ONLY (RN/NIC): No Pain Present Currently: No Pain scale:: 0 Pain Scale Used: Schrader-Mccann/Numerical Do You Feel Safe at Home: Yes Authorities Contacted: N/A Smoking Status Smoking Status: Never smoker Immunization / Flu Flu Vaccine in the Last 12 Months: Yes Date of most recent flu vaccination: 02/03/24 Flu Vaccine Exclusion Criteria: No Exclusion Criteria Past Medical History Past Medical History NEUROLOGIC: Negative Neurological Disorders or Seizures CARDIAC: Positive Cardiac Disorders and Hypertension; Negative Congestive Heart Failure RESPIRATORY: Negative Chronic Obstructive Pulmonary Disease (COPD) GASTROINTESTINAL: Negative Gastrointestinal Disorders or Hepatitis GENITOURINARY: Negative Genitourinary Disorders or Renal Disease ENT: Negative Cataracts, Glaucoma, Blind, Retinal Detachment, Macular Degeneration, Ear Infection or Deafness ENDOCRINE: Positive Endocrine Disorders and Diabetes Mellitus Type 2; Negative Diabetes Mellitus Type 1 HEMATOLOGIC: Positive Blood Disorders and Anemia OTHER HISTORY: Positive Chicken Pox, Measles and Mumps; Negative Hospitalization, Autoimmune Disease, Down Syndrome, Developmental Delay, Shingles, Falls, Blood Transfusions, Anesthesia Reactions, Organ Transplant, Chemotherapy, Radiation Therapy, Hyperbaric Therapy, MRSA, VRSA, Vancomycin-Resistant Enterococci, Clostridium Difficile or Cancer Family History FAMILY HISTORY: Positive Family Gastrointestinal Problems; Negative Family Psychiatric Problems, Family Respiratory Disorders, Family Cardiac Disorders, Family Cancer, Family Surgery or Family Anesthesia Reaction Surgical History SURGICAL: Negative Organ Transplant Social History SMOKING STATUS: Smoking status: Never smoker ALCOHOL: Alcohol Intake: Never HOUSING: Housing: House LIVES WITH: Lives With: Spouse Patient Portal Questionaires PHQ-9 PHQ-2 Over the last 2 weeks, how often have you been bothered by any of the following problems? 1. Little interest or pleasure in doing things: not at all PHQ-9 8. Moving or speaking so slowly that other people could have noticed? - Or the opposite - being so fidgety or restless that you have been moving around a lot more than usual: not at all Source: Developed by Drs. Charly Elizabeth, Mima Blevins, Jonathan Rodriguez and colleagues, with an educational lili from [employer]. Social History Living Situation History Housing: House Housing Other:: Lives w/ Tobacco History Smoking Status: Never smoker Alcohol History Alcohol Intake: Never Domestic Abuse History Do You Feel Safe at Home: Yes Review of Systems Report any current symptoms Only answer those that you have currently: Past Medical History Past Medical History Have you ever been diagnosed with any of the following: Neurological Problems Seizures: No Cardiology Problems Congestive Heart Failure: No Hypertension: Yes Respiratory Problems Chronic Obstructive Pulmonary Disease (COPD): No Stomache/Intestinal Problems Hepatitis: No Genital/Urinary Problems Renal Disease: No Head,Eye,Nose,Throat Problems Cataracts: No Glaucoma: No Blind: No Retinal Detachment: No Macular Degeneration: No Chronic Ear Infections: No Deafness: No Endocrine Problems Diabetes Mellitus Type 1: No Diabetes Mellitus Type 2: Yes Blood Problems Anemia: Yes Other Problems Hospitalization: No Autoimmune Disease: No Down Syndrome: No Developmental Delay: No Shingles: No Falls: No Blood Transfusions: No Anesthesia Reactions: No Organ Transplant: No Chemotherapy: No Radiation Therapy: No Hyperbaric Therapy: No MRSA: No VRSA: No Vancomycin-Resistant Enterococci: No Chicken Pox: Yes Measles: Yes Mumps: Yes Clostridium Difficile: No Cancer: No Assessment & Plan Diagnosis / Problem List (1) History of hypertension: Status: Acute Orders: Orders CBC Today E87.5 - Hyperkalemia Comprehensive Metabolic Panel 3 Weeks E87.5 - Hyperkalemia Office Procedures [facility] Level of Care Nursing/Assessment Patient Status: Established Patient Nursing Assessment/Reassessment: Medication Reconciliation, Update PMH in EMR and Vital Signs Coordination of Care: Complex Care and Chronic Disease 1-5, Consent,records obtained, informed consent, Education Simp Pt/Fam, Lab and Imaging orders and Staff clarify orders Established Patient Charge Established Patient Point Assignment: 100 Established Patient Point Charge: Level 3 (80-115)
[2024-05-21 13:33] VITALS: BP 128/62; PULSE 84; RESP 16; TEMP 36.7; O2SAT 95; BMI 20.7
== END 2024-05-21 14:24 | disposition home or self-care (01) ==
LOC: HODAHC 13:24
PROVIDERS: PCP Student in an Organized Health Care Education/Training Program; Referring Provider Student in an Organized Health Care Education/Training Program; Supervising Provider Internal Medicine; Visit Provider Student in an Organized Health Care Education/Training Program
DX: E87.5 Hyperkalemia (principal); I10 Essential (primary) hypertension
CPT/HCPCS: 99213; G0463

== ENCOUNTER 2024-06-04 15:40 | Outpatient (AMB) | payer MEDICAID, SELFPAY ==
[2024-06-04 14:49] VITALS: BP 99/85; PULSE 84; RESP 16; TEMP 36.2; O2SAT 99; BMI 21.2
--- NOTE | 2024-06-04 14:49 | PD.RESCLINIC ---
Vital Signs 06/04/24 14:49 Height 1.78 m Height Method Stated Weight 67.302 kg Weight Measurement Method Standing Scale BMI 21.2 BP 99/85 H Blood Pressure Source Automatic Cuff Blood Pressure Location Left Upper Arm Position Sitting Respiration 16 Pulse 84 Pulse Source Monitor Temp 97.2 F Temp Source Oral Pulse Oximetry (%) 99 Oxygen Delivery Method Room Air Allergies/Meds Allergies & Medications Allergies No Known Allergies Allergy (Verified 06/04/24 14:50) Medication Reconciliation ferrous sulfate 325 mg (65 mg iron) tablet,delayed release 325 mg PO TID #90 tabs 11/03/23 [Rx Confirmed 06/04/24] insulin degludec 100 unit/mL (3 mL) subcutaneous pen (Tresiba FlexTouch U-100 insulin) 15 unit (0.15 mL) subcut QHS 90 days #15 mL 11/03/23 [Rx Confirmed 06/04/24] lisinopril 40 mg tablet 40 mg PO QDAY #30 tabs 11/03/23 [Rx Confirmed 06/04/24] Held on 05/21/24. Instructions: Hyperkalemia pen needle, diabetic 29 gauge x 1/2 (Comfort EZ Pen [place]) #100 ea 11/03/23 [Rx Confirmed 06/04/24] polyethylene glycol 3350 17 gram/dose oral powder 4 g PO QDAY #238 grams 11/03/23 [Rx Confirmed 06/04/24] sennosides 8.6 mg capsule (senna) 8.6 mg PO QDAY PRN constipation #30 caps 11/03/23 [Rx Confirmed 06/04/24] erythromycin 5 mg/gram (0.5 %) eye ointment 0.5 inch ophthalmic (eye) BID #3.5 grams 12/11/23 [Rx Confirmed 06/04/24] fluconazole 200 mg tablet 200 mg PO TID #90 tabs 03/23/24 [Rx Confirmed 06/04/24] atorvastatin 40 mg tablet 40 mg PO QHS #30 tabs 04/27/24 [Rx Confirmed 06/04/24] gabapentin 100 mg capsule 300 mg (3 x 100 mg) PO TID 30 days #270 caps 04/27/24 [Rx Confirmed 06/04/24] semaglutide 14 mg tablet (Rybelsus) 14 mg PO QDAY #30 tabs 04/27/24 [Rx Confirmed 02/14/25] clindamycin HCl 300 mg capsule 300 mg PO TID #30 caps 05/20/24 [Rx Confirmed 06/04/24] pentoxifylline 400 mg tablet,extended release 400 mg PO TID #30 tabs 05/20/24 [Rx Confirmed 06/04/24] amlodipine 10 mg tablet 10 mg PO QDAY #30 tabs 05/21/24 [Rx Confirmed 06/04/24] blood-glucose sensor (FreeStyle Meg 3 Sensor device) #2 ea 05/27/24 [Rx Confirmed 06/04/24] polyethylene glycol 400 1 % eye drops 1 drp Both eyes BID PRN dry eye(s) #30 mL 06/04/24 [Rx] terbinafine HCl 1 % topical cream (Athlete's Foot (terbinafine)) 1 applic topical BID #30 grams 06/04/24 [Rx] MA Intake Visit Data Collection New Patient or Established: Established Patient (seen at [facility] within 3 years) Seen by Clinical Staff ONLY (RN/NIC): No Pain Present Currently: No Pain scale:: 0 Pain Scale Used: Schrader-Mccann/Numerical Pick Pulling Machine Operator Required: No PCP or OBGYN visit in last 3 months: Yes Hx Now: No Do You Feel Safe at Home: Yes Authorities Contacted: N/A Smoking Status Smoking Status: Never smoker Immunization / Flu Flu Vaccine in the Last 12 Months: No Flu Vaccine Exclusion Criteria: Already Received Past Medical History Past Medical History NEUROLOGIC: Negative Neurological Disorders or Seizures CARDIAC: Positive Cardiac Disorders and Hypertension; Negative Congestive Heart Failure RESPIRATORY: Negative Chronic Obstructive Pulmonary Disease (COPD) GASTROINTESTINAL: Negative Gastrointestinal Disorders or Hepatitis GENITOURINARY: Negative Genitourinary Disorders or Renal Disease ENT: Negative Cataracts, Glaucoma, Blind, Retinal Detachment, Macular Degeneration, Ear Infection or Deafness ENDOCRINE: Positive Endocrine Disorders and Diabetes Mellitus Type 2; Negative Diabetes Mellitus Type 1 HEMATOLOGIC: Positive Blood Disorders and Anemia OTHER HISTORY: Positive Chicken Pox, Measles and Mumps; Negative Hospitalization, Autoimmune Disease, Down Syndrome, Developmental Delay, Shingles, Falls, Blood Transfusions, Anesthesia Reactions, Organ Transplant, Chemotherapy, Radiation Therapy, Hyperbaric Therapy, MRSA, VRSA, Vancomycin-Resistant Enterococci, Clostridium Difficile or Cancer Family History FAMILY HISTORY: Positive Family Gastrointestinal Problems; Negative Family Psychiatric Problems, Family Respiratory Disorders, Family Cardiac Disorders, Family Cancer, Family Surgery or Family Anesthesia Reaction Surgical History SURGICAL: Negative Organ Transplant Social History SMOKING STATUS: Smoking status: Never smoker ALCOHOL: Alcohol Intake: Never HOUSING: Housing: House LIVES WITH: Lives With: Spouse Patient Portal Questionaires PHQ-9 PHQ-2 Over the last 2 weeks, how often have you been bothered by any of the following problems? 1. Little interest or pleasure in doing things: not at all 2. Feeling down, depressed, or hopeless: not at all Total score: 0 PHQ-9 8. Moving or speaking so slowly that other people could have noticed? - Or the opposite - being so fidgety or restless that you have been moving around a lot more than usual: not at all Source: Developed by Drs. Charly Elizabeth, Mima Blevins, Jonathan Rodriguez and colleagues, with an educational lili from [employer]. Depression screen completed yes Social History Living Situation History Housing: House Housing Other:: Lives w/ Tobacco History Smoking Status: Never smoker Alcohol History Alcohol Intake: Never Domestic Abuse History Do You Feel Safe at Home: Yes Review of Systems Report any current symptoms Only answer those that you have currently: Past Medical History Past Medical History Have you ever been diagnosed with any of the following: Neurological Problems Seizures: No Cardiology Problems Congestive Heart Failure: No Hypertension: Yes Respiratory Problems Chronic Obstructive Pulmonary Disease (COPD): No Stomache/Intestinal Problems Hepatitis: No Genital/Urinary Problems Renal Disease: No Head,Eye,Nose,Throat Problems Cataracts: No Glaucoma: No Blind: No Retinal Detachment: No Macular Degeneration: No Chronic Ear Infections: No Deafness: No Endocrine Problems Diabetes Mellitus Type 1: No Diabetes Mellitus Type 2: Yes Blood Problems Anemia: Yes Other Problems Hospitalization: No Autoimmune Disease: No Down Syndrome: No Developmental Delay: No Shingles: No Falls: No Blood Transfusions: No Anesthesia Reactions: No Organ Transplant: No Chemotherapy: No Radiation Therapy: No Hyperbaric Therapy: No MRSA: No VRSA: No Vancomycin-Resistant Enterococci: No Chicken Pox: Yes Measles: Yes Mumps: Yes Clostridium Difficile: No Cancer: No History of Present Illness HPI Narrative Patient here due to complains regarding finger nails. Describes symptoms as discolorations of the nails, started for a couple of months we tried ketoconazole but it did not work. Denies any other symptoms. Review of Systems Review of Systems Systems Reviewed: All systems reviewed, normal except as documented Objective/Exam Narrative Physical exam: Constitutional: AOx3, able to speak full sentences HEENT: NC/AT, PERRLA, oral mucosa moist, neck supple CVS: RRR, S1-S2 present, no murmurs RESP: CTAB GI: non distended, non tender to palpation, NBS MSK: full ROM, no peripheral edema, peripheral pulses present Skin: warm and dry, no rashes, nails are brittle, yellow and cracked Neuro: leadership development instructor II-XII grossly intact. Sensation grossly intact. Assessment & Plan Diagnosis / Problem List (1) Tinea unguium: Status: Acute Plan: -start terbinafine topical -f/u in two weeks if symptoms do not improve Office Procedures [facility] Level of Care Nursing/Assessment Patient Status: Established Patient Nursing Assessment/Reassessment: BP Monitoring, Medication Reconciliation, Update PMH in EMR and Vital Signs Coordination of Care: Complex Care and Chronic Disease 1-5, Consent,records obtained, informed consent, Education Simp Pt/Fam, Lab and Imaging orders and Staff clarify orders Established Patient Charge Established Patient Point Assignment: 115 Established Patient Point Charge: EP Level 3 (80-115)
== END 2024-06-04 15:49 | disposition home or self-care (01) ==
LOC: HODAHC 15:40
PROVIDERS: PCP Student in an Organized Health Care Education/Training Program; Referring Provider Student in an Organized Health Care Education/Training Program; Supervising Provider Internal Medicine; Visit Provider Student in an Organized Health Care Education/Training Program
DX: B35.1 Tinea unguium (principal)
CPT/HCPCS: 99213; G0463

== ENCOUNTER 2024-07-02 14:34 | Outpatient (AMB) | payer MEDICAID, SELFPAY ==
[2024-07-02 14:48] VITALS: BP 132/58; PULSE 84; RESP 16; TEMP 36.7; O2SAT 98; BMI 21.9
--- NOTE | 2024-07-02 14:48 | ACNOTE_ITS ---
Vital Signs 07/02/24 14:48 Height 1.78 m Height Method Stated Weight 69.57 kg Weight Measurement Method Standing Scale BMI 21.9 BP 132/58 H Blood Pressure Source Automatic Cuff Blood Pressure Location Left Upper Arm Position Sitting Respiration 16 Pulse 84 Pulse Source Monitor Temp 98.1 F Temp Source Temporal Artery Scan Pulse Oximetry (%) 98 Oxygen Delivery Method Room Air Allergies/Meds Allergies & Medications Allergies No Known Allergies Allergy (Verified 07/02/24 14:52) Medication Reconciliation ferrous sulfate 325 mg (65 mg iron) tablet,delayed release 325 mg PO TID #90 tabs 11/03/23 [Rx Confirmed 07/02/24] insulin degludec 100 unit/mL (3 mL) subcutaneous pen (Tresiba FlexTouch U-100 insulin) 15 unit (0.15 mL) subcut QHS 90 days #15 mL 11/03/23 [Rx Confirmed 07/02/24] lisinopril 40 mg tablet 40 mg PO QDAY #30 tabs 11/03/23 [Rx Confirmed 07/02/24] Held on 05/21/24. Instructions: Hyperkalemia pen needle, diabetic 29 gauge x 1/2 (Comfort EZ Pen [place]) #100 ea 11/03/23 [Rx Confirmed 07/02/24] polyethylene glycol 3350 17 gram/dose oral powder 4 g PO QDAY #238 grams 11/03/23 [Rx Confirmed 07/02/24] sennosides 8.6 mg capsule (senna) 8.6 mg PO QDAY PRN constipation #30 caps 11/03/23 [Rx Confirmed 07/02/24] erythromycin 5 mg/gram (0.5 %) eye ointment 0.5 inch ophthalmic (eye) BID #3.5 grams 12/11/23 [Rx Confirmed 07/02/24] fluconazole 200 mg tablet 200 mg PO TID #90 tabs 03/23/24 [Rx Confirmed 07/02/24] atorvastatin 40 mg tablet 40 mg PO QHS #30 tabs 04/27/24 [Rx Confirmed 07/02/24] gabapentin 100 mg capsule 300 mg (3 x 100 mg) PO TID 30 days #270 caps 04/27/24 [Rx Confirmed 07/02/24] semaglutide 14 mg tablet (Rybelsus) 14 mg PO QDAY #30 tabs 04/27/24 [Rx Confirmed 07/02/24] clindamycin HCl 300 mg capsule 300 mg PO TID #30 caps 05/20/24 [Rx Confirmed 07/02/24] pentoxifylline 400 mg tablet,extended release 400 mg PO TID #30 tabs 05/20/24 [Rx Confirmed 07/02/24] amlodipine 10 mg tablet 10 mg PO QDAY #30 tabs 05/21/24 [Rx Confirmed 07/02/24] blood-glucose sensor (FreeStyle Meg 3 Sensor device) #2 ea 05/27/24 [Rx Confirmed 07/02/24] ketoconazole 2 % topical cream 1 applic topical QDAY #60 grams 07/02/24 [Rx Confirmed 07/02/24] polyethylene glycol 400 1 % eye drops 1 drp ophthalmic (eye) BID PRN dry eye(s) #30 mL 07/02/24 [Rx Confirmed 07/02/24] MA Intake Visit Data Collection New Patient or Established: Established Patient (seen at [facility] within 3 years) Seen by Clinical Staff ONLY (RN/MA): No Pain Present Currently: No Pain scale:: 0 Pain Scale Used: Schrader-Mccann/Numerical Roofing Supervisor Required: No PCP or OBGYN visit in last 3 months: No Hx Now: No Do You Feel Safe at Home: Yes Authorities Contacted: N/A Smoking Status Smoking Status: Never smoker Immunization / Flu Flu Vaccine in the Last 12 Months: No Flu Vaccine Exclusion Criteria: No Exclusion Criteria Past Medical History Past Medical History NEUROLOGIC: Negative Neurological Disorders or Seizures CARDIAC: Positive Cardiac Disorders and Hypertension; Negative Congestive Heart Failure RESPIRATORY: Negative Chronic Obstructive Pulmonary Disease (COPD) GASTROINTESTINAL: Negative Gastrointestinal Disorders or Hepatitis GENITOURINARY: Negative Genitourinary Disorders or Renal Disease ENT: Negative Cataracts, Glaucoma, Blind, Retinal Detachment, Macular Degeneration, Ear Infection or Deafness ENDOCRINE: Positive Endocrine Disorders and Diabetes Mellitus Type 2; Negative Diabetes Mellitus Type 1 HEMATOLOGIC: Positive Blood Disorders and Anemia OTHER HISTORY: Positive Chicken Pox, Measles and Mumps; Negative Hospitalization, Autoimmune Disease, Down Syndrome, Developmental Delay, Shingles, Falls, Blood Transfusions, Anesthesia Reactions, Organ Transplant, Chemotherapy, Radiation Therapy, Hyperbaric Therapy, MRSA, VRSA, Vancomycin-Resistant Enterococci, Clostridium Difficile or Cancer Family History FAMILY HISTORY: Positive Family Gastrointestinal Problems; Negative Family Psychiatric Problems, Family Respiratory Disorders, Family Cardiac Disorders, Family Cancer, Family Surgery or Family Anesthesia Reaction Surgical History SURGICAL: Negative Organ Transplant Social History SMOKING STATUS: Smoking status: Never smoker ALCOHOL: Alcohol Intake: Never HOUSING: Housing: House LIVES WITH: Lives With: Spouse Patient Portal Questionaires PHQ-9 PHQ-2 Over the last 2 weeks, how often have you been bothered by any of the following problems? 1. Little interest or pleasure in doing things: not at all PHQ-9 8. Moving or speaking so slowly that other people could have noticed? - Or the opposite - being so fidgety or restless that you have been moving around a lot more than usual: not at all Source: Developed by Drs. Charly Elizabeth, Mima Blevins, Jonathan Rodriguez and colleagues, with an educational lili from [employer]. Social History Living Situation History Housing: House Housing Other:: Lives w/ Tobacco History Smoking Status: Never smoker Alcohol History Alcohol Intake: Never Domestic Abuse History Do You Feel Safe at Home: Yes Review of Systems Report any current symptoms Only answer those that you have currently: Past Medical History Past Medical History Have you ever been diagnosed with any of the following: Neurological Problems Seizures: No Cardiology Problems Congestive Heart Failure: No Hypertension: Yes Respiratory Problems Chronic Obstructive Pulmonary Disease (COPD): No Stomache/Intestinal Problems Hepatitis: No Genital/Urinary Problems Renal Disease: No Head,Eye,Nose,Throat Problems Cataracts: No Glaucoma: No Blind: No Retinal Detachment: No Macular Degeneration: No Chronic Ear Infections: No Deafness: No Endocrine Problems Diabetes Mellitus Type 1: No Diabetes Mellitus Type 2: Yes Blood Problems Anemia: Yes Other Problems Hospitalization: No Autoimmune Disease: No Down Syndrome: No Developmental Delay: No Shingles: No Falls: No Blood Transfusions: No Anesthesia Reactions: No Organ Transplant: No Chemotherapy: No Radiation Therapy: No Hyperbaric Therapy: No MRSA: No VRSA: No Vancomycin-Resistant Enterococci: No Chicken Pox: Yes Measles: Yes Mumps: Yes Clostridium Difficile: No Cancer: No History of Present Illness HPI Narrative Patient here due to complains regarding finger nail and s/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 Describes symptoms as discolorations of the nails, started for a couple of months we tried ketoconazole but it did not work. Denies any other symptoms. Review of Systems Review of Systems Systems Reviewed: All systems reviewed, normal except as documented Objective/Exam Narrative Physical exam: Constitutional: AOx3, able to speak full sentences HEENT: NC/AT, PERRLA, oral mucosa moist, neck supple CVS: RRR, S1-S2 present, no murmurs RESP: CTAB GI: non distended, non tender to palpation, NBS MSK: full ROM, no peripheral edema, peripheral pulses present, L foot bandage after amputation Skin: warm and dry, no rashes, fingernails are discolored and brittle Neuro: physician/internist II-XII grossly intact. Sensation grossly intact. Assessment & Plan Diagnosis / Problem List (1) Tinea unguium: Status: Acute Assessment & Plan: ketoconazole has not improved his symptoms Plan: -we leslye consider terbinafine on next appointment (2) Amputation of toe of left foot: Status: Acute Assessment & Plan: s/p 1 week ago due to dry gangrene of the 2nd digit of the L foot Plan: -follow up with soda dry house operator Orders: Orders Comprehensive Metabolic Panel 2 Months E11.621 - Type 2 diabetes mellitus with foot ulcer, E11.9 - Type 2 diabetes mellitus without complications, E78.5 - Hyperlipidemia, unspecified, E87.5 - Hyperkalemia, G62.9 - Polyneuropathy, unspecified, L97.501 - Non-pressure chronic ulcer of other part of unspecified foot limited to breakdown of skin, L97.509 - Non-pressure chronic ulcer of other part of unspecified foot with unspecified severity, Z79.4 - nursing home (current) use of insulin Ambulatory Hemoglobin A1C 07/02/24 E11.621 - Type 2 diabetes mellitus with foot ulcer, L97.509 - Non-pressure chronic ulcer of other part of unspecified foot with unspecified severity CBC 07/02/24 Lipid Panel 2 Months E78.5 - Hyperlipidemia, unspecified Vitamin D 25 Hydroxy Total 2 Months E11.9 - Type 2 diabetes mellitus without complications, G62.9 - Polyneuropathy, unspecified, Z79.4 - nursing home (current) use of insulin Microalbumin, Ur Rnd w Creat 2 Months E11.9 - Type 2 diabetes mellitus without complications, Z79.4 - nursing home (current) use of insulin Office Procedures [facility] Level of Care Nursing/Assessment Patient Status: Established Patient Nursing Assessment/Reassessment: Medication Reconciliation, Update PMH in EMR and Vital Signs Coordination of Care: Complex Care and Chronic Disease 1-5, Consent,records obtained, informed consent, Education Simp Pt/Fam and Staff clarify orders Established Patient Charge Established Patient Point Assignment: 85 Established Patient Point Charge: EP Level 3 (80-115)
== END 2024-07-02 14:58 | disposition home or self-care (01) ==
LOC: HODAHC 14:34
PROVIDERS: PCP Student in an Organized Health Care Education/Training Program; Referring Provider Student in an Organized Health Care Education/Training Program; Supervising Provider Internal Medicine; Visit Provider Student in an Organized Health Care Education/Training Program
DX: B35.1 Tinea unguium (principal); Z89.422 Acquired absence of other left toe(s)
CPT/HCPCS: 99213; G0463

== ENCOUNTER 2024-08-06 13:44 | Outpatient (AMB) | payer MEDICAID, SELFPAY ==
[2024-08-06 14:08] VITALS: BP 145/68; PULSE 76; RESP 18; TEMP 36.3; O2SAT 98; BMI 21.4
--- NOTE | 2024-08-06 14:08 | PD.RESCLINIC ---
Vital Signs 08/06/24 14:08 Height 1.78 m Height Method Stated Weight 68.039 kg Weight Measurement Method Standing Scale BMI 21.4 BP 145/68 H Blood Pressure Source Automatic Cuff Blood Pressure Location Left Upper Arm Position Sitting Respiration 18 Pulse 76 Pulse Source Monitor Temp 97.3 F Temp Source Temporal Artery Scan Pulse Oximetry (%) 98 Oxygen Delivery Method Room Air Allergies/Meds Allergies & Medications Allergies No Known Allergies Allergy (Verified 08/06/24 14:16) Medication Reconciliation ferrous sulfate 325 mg (65 mg iron) tablet,delayed release 325 mg PO TID #90 tabs 11/03/23 [Rx Confirmed 08/06/24] lisinopril 40 mg tablet 40 mg PO QDAY #30 tabs 11/03/23 [Rx Confirmed 08/06/24] Held on 05/21/24. Instructions: Hyperkalemia pen needle, diabetic 29 gauge x 1/2 (Comfort EZ Pen [place]) #100 ea 11/03/23 [Rx Confirmed 08/06/24] polyethylene glycol 3350 17 gram/dose oral powder 4 g PO QDAY #238 grams 11/03/23 [Rx Confirmed 08/06/24] sennosides 8.6 mg capsule (senna) 8.6 mg PO QDAY PRN constipation #30 caps 11/03/23 [Rx Confirmed 08/06/24] erythromycin 5 mg/gram (0.5 %) eye ointment 0.5 inch ophthalmic (eye) BID #3.5 grams 12/11/23 [Rx Confirmed 08/06/24] fluconazole 200 mg tablet 200 mg PO TID #90 tabs 03/23/24 [Rx Confirmed 08/06/24] gabapentin 100 mg capsule 300 mg (3 x 100 mg) PO TID 30 days #270 caps 04/27/24 [Rx Confirmed 08/06/24] clindamycin HCl 300 mg capsule 300 mg PO TID #30 caps 05/20/24 [Rx Confirmed 08/06/24] pentoxifylline 400 mg tablet,extended release 400 mg PO TID #30 tabs 05/20/24 [Rx Confirmed 08/06/24] ketoconazole 2 % topical cream 1 applic topical QDAY #60 grams 07/02/24 [Rx Confirmed 08/06/24] polyethylene glycol 400 1 % eye drops 1 drp ophthalmic (eye) BID PRN dry eye(s) #30 mL 07/02/24 [Rx Confirmed 08/06/24] amlodipine 10 mg tablet 10 mg PO QDAY #30 tabs 08/06/24 [Rx] atorvastatin 40 mg tablet 40 mg PO QHS #30 tabs 08/06/24 [Rx] blood sugar diagnostic (Accu-Chek Marisela Plus test strips) #100 ea 08/06/24 [Rx] blood-glucose meter (Accu-Chek Guide Glucose Meter) #1 ea 08/06/24 [Rx] blood-glucose sensor (FreeStyle Meg 3 Sensor device) #2 ea 08/06/24 [Rx] carboxymethylcellulose sodium 1 % eye drops (Artificial Tears (carboxymethylcellulose)) 1 drp Both eyes TID #15 mL 08/06/24 [Rx] insulin degludec 100 unit/mL (3 mL) subcutaneous pen (Tresiba FlexTouch U-100 insulin) 15 unit (0.15 mL) subcut QHS 90 days #15 mL 08/06/24 [Rx] lancets 28 gauge (Acti-Art Lancets) #100 ea 08/06/24 [Rx] semaglutide 14 mg tablet (Rybelsus) 14 mg PO QDAY #30 tabs 08/06/24 [Rx] MA Intake Visit Data Collection New Patient or Established: Established Patient (seen at [facility] within 3 years) Seen by Clinical Staff ONLY (RN/MA): No Pain Present Currently: No Pain scale:: 0 Pain Scale Used: Cshrader-Mccann/Numerical Marketing Automation Manager Required: No PCP or OBGYN visit in last 3 months: No Hx Now: No Do You Feel Safe at Home: Yes Authorities Contacted: N/A Smoking Status Smoking Status: Never smoker Immunization / Flu Flu Vaccine in the Last 12 Months: No Flu Vaccine Exclusion Criteria: No Exclusion Criteria Past Medical History Past Medical History NEUROLOGIC: Negative Neurological Disorders or Seizures CARDIAC: Positive Cardiac Disorders and Hypertension; Negative Congestive Heart Failure RESPIRATORY: Negative Chronic Obstructive Pulmonary Disease (COPD) GASTROINTESTINAL: Negative Gastrointestinal Disorders or Hepatitis GENITOURINARY: Negative Genitourinary Disorders or Renal Disease ENT: Negative Cataracts, Glaucoma, Blind, Retinal Detachment, Macular Degeneration, Ear Infection or Deafness ENDOCRINE: Positive Endocrine Disorders and Diabetes Mellitus Type 2; Negative Diabetes Mellitus Type 1 HEMATOLOGIC: Positive Blood Disorders and Anemia OTHER HISTORY: Positive Chicken Pox, Measles and Mumps; Negative Hospitalization, Autoimmune Disease, Down Syndrome, Developmental Delay, Shingles, Falls, Blood Transfusions, Anesthesia Reactions, Organ Transplant, Chemotherapy, Radiation Therapy, Hyperbaric Therapy, MRSA, VRSA, Vancomycin-Resistant Enterococci, Clostridium Difficile or Cancer Family History FAMILY HISTORY: Positive Family Gastrointestinal Problems; Negative Family Psychiatric Problems, Family Respiratory Disorders, Family Cardiac Disorders, Family Cancer, Family Surgery or Family Anesthesia Reaction Surgical History SURGICAL: Negative Organ Transplant Social History SMOKING STATUS: Smoking status: Never smoker ALCOHOL: Alcohol Intake: Never HOUSING: Housing: House LIVES WITH: Lives With: Spouse Patient Portal Questionaires PHQ-9 PHQ-2 Over the last 2 weeks, how often have you been bothered by any of the following problems? 1. Little interest or pleasure in doing things: not at all PHQ-9 8. Moving or speaking so slowly that other people could have noticed? - Or the opposite - being so fidgety or restless that you have been moving around a lot more than usual: not at all Source: Developed by Drs. Charly Elizabeth, Mima Blevins, Jonathan Rodriguez and colleagues, with an educational lili from [employer]. Social History Living Situation History Housing: House Housing Other:: Lives w/ Tobacco History Smoking Status: Never smoker Alcohol History Alcohol Intake: Never Domestic Abuse History Do You Feel Safe at Home: Yes Review of Systems Report any current symptoms Only answer those that you have currently: Past Medical History Past Medical History Have you ever been diagnosed with any of the following: Neurological Problems Seizures: No Cardiology Problems Congestive Heart Failure: No Hypertension: Yes Respiratory Problems Chronic Obstructive Pulmonary Disease (COPD): No Stomache/Intestinal Problems Hepatitis: No Genital/Urinary Problems Renal Disease: No Head,Eye,Nose,Throat Problems Cataracts: No Glaucoma: No Blind: No Retinal Detachment: No Macular Degeneration: No Chronic Ear Infections: No Deafness: No Endocrine Problems Diabetes Mellitus Type 1: No Diabetes Mellitus Type 2: Yes Blood Problems Anemia: Yes Other Problems Hospitalization: No Autoimmune Disease: No Down Syndrome: No Developmental Delay: No Shingles: No Falls: No Blood Transfusions: No Anesthesia Reactions: No Organ Transplant: No Chemotherapy: No Radiation Therapy: No Hyperbaric Therapy: No MRSA: No VRSA: No Vancomycin-Resistant Enterococci: No Chicken Pox: Yes Measles: Yes Mumps: Yes Clostridium Difficile: No Cancer: No History of Present Illness HPI Narrative Patient here for f/u his labs. Denies any problems today, Is following podiatry for L foot that s/p amputation, no complains. Patient is drinking enough water and exercising. 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 Sensation grossly intact. Assessment & Plan Diagnosis / Problem List (1) DM2 (diabetes mellitus, type 2): Status: Acute Qualifiers: Diabetes mellitus complication detail: with foot ulcer Diabetes mellitus complication status: with skin complications Diabetes mellitus intermediate insulin use: without terminal clerk use Qualified Code(s): E11.621 - Type 2 diabetes mellitus with foot ulcer; L97.509 - Non-pressure chronic ulcer of other part of unspecified foot with unspecified severity Assessment & Plan: Well controlled, A1c is 7.2 CGM reviewed average FBG is 120s Plan: -continue current managemnt -f/u 3 months with labs -dit and exercise discussed (2) Dry eye: Status: Acute Assessment & Plan: dry eyes likely 2/2 to allergies Plan: -artificial eye drops sent to pharmacy (3) Cataract: Status: Acute Plan: continue following shear grinder operator helper Physician Billing Established Patient Established Patient: E/M Level 3-CPT 57569 Office Procedures [facility] Level of Care Nursing/Assessment Patient Status: Established Patient Nursing Assessment/Reassessment: Medication Reconciliation, Update PMH in EMR and Vital Signs Coordination of Care: Complex Care and Chronic Disease 1-5, Consent,records obtained, informed consent, Education Simp Pt/Fam and Staff clarify orders Established Patient Charge Established Patient Point Assignment: 85 Established Patient Point Charge: Level 3 (80-115)
== END 2024-08-06 15:07 | disposition home or self-care (01) ==
LOC: HODAHC 13:44
PROVIDERS: PCP Student in an Organized Health Care Education/Training Program; Referring Provider Student in an Organized Health Care Education/Training Program; Supervising Provider Internal Medicine; Visit Provider Student in an Organized Health Care Education/Training Program
DX: E11.621 Type 2 diabetes mellitus with foot ulcer (principal); L97.509 Non-pressure chronic ulcer of other part of unspecified foot with unspecified severity; Z79.4 Long term (current) use of insulin; Z89.422 Acquired absence of other left toe(s); H04.123 Dry eye syndrome of bilateral lacrimal glands; H26.9 Unspecified cataract
CPT/HCPCS: 99213; G0463

== ENCOUNTER 2024-10-08 14:08 | Outpatient (AMB) | payer MEDICAID, SELFPAY ==
[2024-10-08 14:43] VITALS: BP 135/65; PULSE 77; RESP 18; TEMP 36.6; O2SAT 96; BMI 21.0
--- NOTE | 2024-10-08 14:43 | PD.RESCLINIC ---
Vital Signs 10/08/24 14:43 Height 1.78 m Height Method Stated Weight 66.791 kg Weight Measurement Method Standing Scale BMI 21.0 BP 135/65 H Blood Pressure Source Automatic Cuff Blood Pressure Location Right Upper Arm Position Sitting Respiration 18 Pulse 77 Pulse Source Monitor Temp 97.8 F Temp Source Temporal Artery Scan Pulse Oximetry (%) 96 Oxygen Delivery Method Room Air Allergies/Meds Allergies & Medications Allergies No Known Allergies Allergy (Verified 10/08/24 14:44) Medication Reconciliation ferrous sulfate 325 mg (65 mg iron) tablet,delayed release 325 mg PO TID #90 tabs 11/03/23 [Rx Confirmed 10/08/24] lisinopril 40 mg tablet 40 mg PO QDAY #30 tabs 11/03/23 [Rx Confirmed 10/08/24] Held on 05/21/24. Instructions: Hyperkalemia pen needle, diabetic 29 gauge x 1/2 (Comfort EZ Pen [place]) #100 ea 11/03/23 [Rx Confirmed 10/08/24] polyethylene glycol 3350 17 gram/dose oral powder 4 g PO QDAY #238 grams 11/03/23 [Rx Confirmed 10/08/24] sennosides 8.6 mg capsule (senna) 8.6 mg PO QDAY PRN constipation #30 caps 11/03/23 [Rx Confirmed 10/08/24] erythromycin 5 mg/gram (0.5 %) eye ointment 0.5 inch ophthalmic (eye) BID #3.5 grams 12/11/23 [Rx Confirmed 10/08/24] fluconazole 200 mg tablet 200 mg PO TID #90 tabs 03/23/24 [Rx Confirmed 10/08/24] gabapentin 100 mg capsule 300 mg (3 x 100 mg) PO TID 30 days #270 caps 04/27/24 [Rx Confirmed 10/08/24] clindamycin HCl 300 mg capsule 300 mg PO TID #30 caps 05/20/24 [Rx Confirmed 10/08/24] pentoxifylline 400 mg tablet,extended release 400 mg PO TID #30 tabs 05/20/24 [Rx Confirmed 10/08/24] ketoconazole 2 % topical cream 1 applic topical QDAY #60 grams 07/02/24 [Rx Confirmed 10/08/24] polyethylene glycol 400 1 % eye drops 1 drp ophthalmic (eye) BID PRN dry eye(s) #30 mL 07/02/24 [Rx Confirmed 10/08/24] amlodipine 10 mg tablet 10 mg PO QDAY #30 tabs 08/06/24 [Rx Confirmed 10/08/24] atorvastatin 40 mg tablet 40 mg PO QHS #30 tabs 08/06/24 [Rx Confirmed 10/08/24] blood sugar diagnostic (Accu-Chek Marisela Plus test strips) #100 ea 08/06/24 [Rx Confirmed 10/08/24] blood-glucose meter (Accu-Chek Guide Glucose Meter) #1 ea 08/06/24 [Rx Confirmed 10/08/24] blood-glucose sensor (FreeStyle Meg 3 Sensor device) #2 ea 08/06/24 [Rx Confirmed 10/08/24] carboxymethylcellulose sodium 1 % eye drops (Artificial Tears (carboxymethylcellulose)) 1 drp Both eyes TID #15 mL 08/06/24 [Rx Confirmed 10/08/24] lancets 28 gauge (Acti-Art Lancets) #100 ea 08/06/24 [Rx Confirmed 10/08/24] semaglutide 14 mg tablet (Rybelsus) 14 mg PO QDAY #30 tabs 08/06/24 [Rx Confirmed 10/08/24] insulin degludec 100 unit/mL (3 mL) subcutaneous pen (Tresiba FlexTouch U-100 insulin) 15 unit (0.15 mL) subcut QHS 90 days #15 mL 10/08/24 [Rx] MA Intake Visit Data Collection New Patient or Established: Established Patient (seen at [facility] within 3 years) Seen by Clinical Staff ONLY (RN/MA): No Pain Present Currently: No Pain scale:: 0 Pain Scale Used: Schrader-Mccann/Numerical Climatology Professor Required: No PCP or OBGYN visit in last 3 months: No Hx Now: No Do You Feel Safe at Home: Yes Authorities Contacted: N/A Smoking Status Smoking Status: Never smoker Immunization / Flu Flu Vaccine in the Last 12 Months: No Flu Vaccine Exclusion Criteria: No Exclusion Criteria Past Medical History Past Medical History NEUROLOGIC: Negative Neurological Disorders or Seizures CARDIAC: Positive Cardiac Disorders and Hypertension; Negative Congestive Heart Failure RESPIRATORY: Negative Chronic Obstructive Pulmonary Disease (COPD) GASTROINTESTINAL: Negative Gastrointestinal Disorders or Hepatitis GENITOURINARY: Negative Genitourinary Disorders or Renal Disease ENT: Negative Cataracts, Glaucoma, Blind, Retinal Detachment, Macular Degeneration, Ear Infection or Deafness ENDOCRINE: Positive Endocrine Disorders and Diabetes Mellitus Type 2; Negative Diabetes Mellitus Type 1 HEMATOLOGIC: Positive Blood Disorders and Anemia OTHER HISTORY: Positive Chicken Pox, Measles and Mumps; Negative Hospitalization, Autoimmune Disease, Down Syndrome, Developmental Delay, Shingles, Falls, Blood Transfusions, Anesthesia Reactions, Organ Transplant, Chemotherapy, Radiation Therapy, Hyperbaric Therapy, MRSA, VRSA, Vancomycin-Resistant Enterococci, Clostridium Difficile or Cancer Family History FAMILY HISTORY: Positive Family Gastrointestinal Problems; Negative Family Psychiatric Problems, Family Respiratory Disorders, Family Cardiac Disorders, Family Cancer, Family Surgery or Family Anesthesia Reaction Surgical History SURGICAL: Negative Organ Transplant Social History SMOKING STATUS: Smoking status: Never smoker ALCOHOL: Alcohol Intake: Never HOUSING: Housing: House LIVES WITH: Lives With: Spouse Patient Portal Questionaires PHQ-9 PHQ-2 Over the last 2 weeks, how often have you been bothered by any of the following problems? 1. Little interest or pleasure in doing things: not at all PHQ-9 8. Moving or speaking so slowly that other people could have noticed? - Or the opposite - being so fidgety or restless that you have been moving around a lot more than usual: not at all Source: Developed by Drs. Charly Elizabeth, Mima Blevins, Jonathan Rodriguez and colleagues, with an educational lili from [employer]. Social History Living Situation History Housing: House Housing Other:: Lives w/ Tobacco History Smoking Status: Never smoker Alcohol History Alcohol Intake: Never Domestic Abuse History Do You Feel Safe at Home: Yes Review of Systems Report any current symptoms Only answer those that you have currently: Past Medical History Past Medical History Have you ever been diagnosed with any of the following: Neurological Problems Seizures: No Cardiology Problems Congestive Heart Failure: No Hypertension: Yes Respiratory Problems Chronic Obstructive Pulmonary Disease (COPD): No Stomache/Intestinal Problems Hepatitis: No Genital/Urinary Problems Renal Disease: No Head,Eye,Nose,Throat Problems Cataracts: No Glaucoma: No Blind: No Retinal Detachment: No Macular Degeneration: No Chronic Ear Infections: No Deafness: No Endocrine Problems Diabetes Mellitus Type 1: No Diabetes Mellitus Type 2: Yes Blood Problems Anemia: Yes Other Problems Hospitalization: No Autoimmune Disease: No Down Syndrome: No Developmental Delay: No Shingles: No Falls: No Blood Transfusions: No Anesthesia Reactions: No Organ Transplant: No Chemotherapy: No Radiation Therapy: No Hyperbaric Therapy: No MRSA: No VRSA: No Vancomycin-Resistant Enterococci: No Chicken Pox: Yes Measles: Yes Mumps: Yes Clostridium Difficile: No Cancer: No History of Present Illness HPI Narrative Came for regular follow up visit. Denies any other complaints. Compliant with all the medications. HbA1c is within normal limits during the recent lab work. Asked for refill of the insulin degludec Review of Systems Review of Systems Systems Reviewed: All systems reviewed, normal except as documented Objective/Exam Narrative Physical exam: General: Awake. HEENT: Normocephalic, atraumatic, mucous membranes moist. Heart: Regular rate and rhythm, no murmurs. Lungs: Clear to auscultation with no wheezing or crackles. Abdomen: Soft, nondistended, nontender, positive bowel sounds. ?No guarding or rebound tenderness. Neurologic: Alert and oriented x3, no gross neurological deficit, and patient able to move all 4 extremities. Extremities: No edema. 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 Assessment & Plan Diagnosis / Problem List (1) DM2 (diabetes mellitus, type 2): Status: Acute Qualifiers: Diabetes mellitus nursing home insulin use: without rodent exterminator use Diabetes mellitus complication status: with skin complications Diabetes mellitus complication detail: with foot ulcer Qualified Code(s): E11.621 - Type 2 diabetes mellitus with foot ulcer; L97.509 - Non-pressure chronic ulcer of other part of unspecified foot with unspecified severity Assessment & Plan: Came for regular follow up Denies any other compliants Compliant with all the medications Plan: - Recommended to continue current managemnt - Repeat A1c, urine albumin ordered - Refilled Insulin Degludec - Educated on medication compliance, diet and regular physical exercise (2) Dry eye: Status: Acute Qualifiers: Laterality: bilateral Qualified Code(s): H04.123 - Dry eye syndrome of bilateral lacrimal glands Assessment & Plan: dry eyes likely 2/2 to allergies Plan: - Recommended to continue eye drops as needed Office Procedures [facility] Level of Care Nursing/Assessment Patient Status: Established Patient Nursing Assessment/Reassessment: Medication Reconciliation, Update PMH in EMR and Vital Signs Coordination of Care: Complex Care and Chronic Disease 1-5, Consent,records obtained, informed consent, Education Simp Pt/Fam and Staff clarify orders Established Patient Charge Established Patient Point Assignment: 85 Established Patient Point Charge: EP Level 3 (80-115)
== END 2024-10-08 15:08 | disposition home or self-care (01) ==
LOC: HODAHC 14:08
PROVIDERS: Supervising Provider Internal Medicine
DX: E11.621 Type 2 diabetes mellitus with foot ulcer (principal); L97.509 Non-pressure chronic ulcer of other part of unspecified foot with unspecified severity; Z79.4 Long term (current) use of insulin; H04.123 Dry eye syndrome of bilateral lacrimal glands
CPT/HCPCS: 99213; G0463

== ENCOUNTER 2025-02-18 13:02 | Outpatient (AMB) | payer MEDICAID, SELFPAY ==
[2025-02-18 13:13] VITALS: BP 166/75; PULSE 90; RESP 16; TEMP 36.9; O2SAT 94; BMI 22.2
--- NOTE | 2025-02-18 13:13 | ACNOTE_ITS ---
Vital Signs 02/18/25 13:13 Height 1.78 m Height Method Stated Weight 70.477 kg Weight Measurement Method Standing Scale BMI 22.2 BP 166/75 H Blood Pressure Source Automatic Cuff Blood Pressure Location Right Upper Arm Position Sitting Respiration 16 Pulse 90 Pulse Source Monitor Temp 98.5 F Temp Source Temporal Artery Scan Pulse Oximetry (%) 94 L Oxygen Delivery Method Room Air Allergies/Meds Allergies & Medications Allergies No Known Allergies Allergy (Verified 02/18/25 13:14) Medication Reconciliation ferrous sulfate 325 mg (65 mg iron) tablet,delayed release 325 mg PO TID #90 t abs 11/03/23 [Rx Confirmed 02/18/25] lisinopril 40 mg tablet 40 mg PO QDAY #30 tabs 11/03/23 [Rx Confirmed 02/18/25] Held on 05/21/24. Instructions: Hyperkalemia polyethylene glycol 3350 17 gram/dose oral powder 4 g PO QDAY #238 grams 11/03/23 [Rx Confirmed 02/18/25] sennosides 8.6 mg capsule (senna) 8.6 mg PO QDAY PRN constipation #30 caps 11/03/23 [Rx Confirmed 02/18/25] erythromycin 5 mg/gram (0.5 %) eye ointment 0.5 inch ophthalmic (eye) BID #3.5 grams 12/11/23 [Rx Confirmed 02/18/25] fluconazole 200 mg tablet 200 mg PO TID #90 tabs 03/23/24 [Rx Confirmed 02/18/25] gabapentin 100 mg capsule 300 mg (3 x 100 mg) PO TID 30 days #270 caps 04/27/24 [Rx Confirmed 02/18/25] clindamycin HCl 300 mg capsule 300 mg PO TID #30 caps 05/20/24 [Rx Confirmed 02/18/25] pentoxifylline 400 mg tablet,extended release 400 mg PO TID #30 tabs 05/20/24 [Rx Confirmed 02/18/25] ketoconazole 2 % topical cream 1 applic topical QDAY #60 grams 07/02/24 [Rx Confirmed 02/18/25] polyethylene glycol 400 1 % eye drops 1 drp ophthalmic (eye) BID PRN dry eye(s) #30 mL 07/02/24 [Rx Confirmed 02/18/25] blood sugar diagnostic (Accu-Chek Marisela Plus test strips) #100 ea 08/06/24 [Rx Confirmed 02/18/25] blood-glucose meter (Accu-Chek Guide Glucose Meter) #1 ea 08/06/24 [Rx Confirmed 02/18/25] carboxymethylcellulose sodium 1 % eye drops (Artificial Tears (carboxymethylcellulose)) 1 drp Both eyes TID #15 mL 08/06/24 [Rx Confirmed 02/18/25] lancets 28 gauge (Acti-Art Lancets) #100 ea 08/06/24 [Rx Confirmed 02/18/25] lancets 28 gauge (Acti-Art Lancets) #100 ea 01/12/25 [Rx Confirmed 02/18/25] pen needle, diabetic 29 gauge x 1/2 (Comfort EZ Pen [place]) #100 ea 01/12/25 [Rx Confirmed 02/18/25] amlodipine 10 mg tablet 10 mg PO QDAY #30 tabs 02/18/25 [Rx] atorvastatin 40 mg tablet 40 mg PO QHS #30 tabs 02/18/25 [Rx] blood-glucose sensor (FreeStyle Meg 3 Sensor device) #2 ea 02/18/25 [Rx] insulin degludec 100 unit/mL (3 mL) subcutaneous pen (Tresiba FlexTouch U-100 insulin) 15 unit (0.15 mL) subcut QHS 90 days #15 mL 02/18/25 [Rx] metformin 500 mg tablet 500 mg PO BID #30 tabs 02/18/25 [Rx] semaglutide 14 mg tablet (Rybelsus) 14 mg PO QDAY #30 tabs 02/18/25 [Rx] MA Intake Visit Data Collection New Patient or Established: Established Patient (seen at [facility] within 3 years) Seen by Clinical Staff ONLY (RN/MA): No Pain Present Currently: No Pain scale:: 0 Pain Scale Used: SchraderRakesh/Numerical Metal Tile Lather Required: Yes PCP or OBGYN visit in last 3 months: Yes Do You Feel Safe at Home: Yes Authorities Contacted: N/A Smoking Status Smoking Status: Never smoker Immunization / Flu Flu Vaccine in the Last 12 Months: No Flu Vaccine Exclusion Criteria: No Exclusion Criteria Past Medical History Past Medical History NEUROLOGIC: Negative Neurological Disorders or Seizures CARDIAC: Positive Cardiac Disorders and Hypertension; Negative Congestive Heart Failure RESPIRATORY: Negative Chronic Obstructive Pulmonary Disease (COPD) GASTROINTESTINAL: Negative Gastrointestinal Disorders or Hepatitis GENITOURINARY: Negative Genitourinary Disorders or Renal Disease ENT: Negative Cataracts, Glaucoma, Blind, Retinal Detachment, Macular Degeneration, Ear Infection or Deafness ENDOCRINE: Positive Endocrine Disorders and Diabetes Mellitus Type 2; Negative Diabetes Mellitus Type 1 HEMATOLOGIC: Positive Blood Disorders and Anemia OTHER HISTORY: Positive Chicken Pox, Measles and Mumps; Negative Hospitalization, Autoimmune Disease, Down Syndrome, Developmental Delay, Shingles, Falls, Blood Transfusions, Anesthesia Reactions, Organ Transplant, Chemotherapy, Radiation Therapy, Hyperbaric Therapy, MRSA, VRSA, Vancomycin-Resistant Enterococci, Clostridium Difficile or Cancer Family History FAMILY HISTORY: Positive Family Gastrointestinal Problems; Negative Family Psychiatric Problems, Family Respiratory Disorders, Family Cardiac Disorders, Family Cancer, Family Surgery or Family Anesthesia Reaction Surgical History SURGICAL: Negative Organ Transplant Social History SMOKING STATUS: Smoking status: Never smoker ALCOHOL: Alcohol Intake: Never HOUSING: Housing: House LIVES WITH: Lives With: Spouse Patient Portal Questionaires PHQ-9 PHQ-2 Over the last 2 weeks, how often have you been bothered by any of the following problems? 1. Little interest or pleasure in doing things: not at all 2. Feeling down, depressed, or hopeless: not at all Total score: 0 PHQ-9 3. Trouble falling or staying asleep, or sleeping too much: Not at all 4. Feeling tired or having little energy: Not at all 5. Poor appetite or overeating: Not at all 6. Feeling bad about yourself - or that you are a failure or have let yourself or your family down: Not at all 7. Trouble concentrating on things, such as reading the newspaper or watching television: Not at all 8. Moving or speaking so slowly that other people could have noticed? - Or the opposite - being so fidgety or restless that you have been moving around a lot more than usual: not at all 9. Thoughts that you would be better off or of hurting yourself in some way: Not at all Total score: 0 Source: Developed by Drs. Charly Elizabeth, Mima Blevins, Jonathan Rodriguez and colleagues, with an educational lili from [employer]. Depression screen completed yes Social History Living Situation History Housing: House Housing Other:: Lives w/ Tobacco History Smoking Status: Never smoker Alcohol History Alcohol Intake: Never Domestic Abuse History Do You Feel Safe at Home: Yes Review of Systems Report any current symptoms Only answer those that you have currently: Past Medical History Past Medical History Have you ever been diagnosed with any of the following: Neurological Problems Seizures: No Cardiology Problems Congestive Heart Failure: No Hypertension: Yes Respiratory Problems Chronic Obstructive Pulmonary Disease (COPD): No Stomache/Intestinal Problems Hepatitis: No Genital/Urinary Problems Renal Disease: No Head,Eye,Nose,Throat Problems Cataracts: No Glaucoma: No Blind: No Retinal Detachment: No Macular Degeneration: No Chronic Ear Infections: No Deafness: No Endocrine Problems Diabetes Mellitus Type 1: No Diabetes Mellitus Type 2: Yes Blood Problems Anemia: Yes Other Problems Hospitalization: No Autoimmune Disease: No Down Syndrome: No Developmental Delay: No Shingles: No Falls: No Blood Transfusions: No Anesthesia Reactions: No Organ Transplant: No Chemotherapy: No Radiation Therapy: No Hyperbaric Therapy: No MRSA: No VRSA: No Vancomycin-Resistant Enterococci: No Chicken Pox: Yes Measles: Yes Mumps: Yes Clostridium Difficile: No Cancer: No History of Present Illness HPI Narrative 02/18/2025: Came for routine follow up visit. Reported that he is no longer taking Rybelsus as he had some insurance issues and not getting refills. Since then, noted to have slight increase in the blood sugars and also noted to have rise in the HbA1c on the freestyle meg. Reported that he increase the dose of insulin degludec from 15 units to 20 units subcutaneous at bedtime daily. Continue to take Jardiance and monitoring blood sugars through freestyle meg. Denies burning micturition, irritation and any other side effects related to the Jardiance except for increased frequency of micturition. Reported that he is taking amlodipine 10 mg once every day and today noted to have mild increase in the blood pressure at with a systolic blood pressure to 160s and recommended patient to monitor blood pressure at home and recommended that if the blood pressure continues to stay above 140, needed to add other antihypertensive agent and patient agreed to that plan. Otherwise patient is doing good and denies any other complaints. Ordered labs including CBC, HbA1c, urine micro albumin creatinine ratio, CMP. Recommended to start metformin as patient is not able to take Rybelsus. Last ophthalmology visit was a month ago per patient and reported that everything was normal. Will follow-up in 3 months for further evaluation. Review of Systems Review of Systems Systems Reviewed: All systems reviewed, normal except as documented Objective/Exam Narrative Physical exam: General: Awake. HEENT: Normocephalic, atraumatic, mucous membranes moist. Heart: Regular rate and rhythm, no murmurs. Lungs: Clear to auscultation with no wheezing or crackles. Abdomen: Soft, nondistended, nontender, positive bowel sounds. ?No guarding or rebound tenderness. Neurologic: Alert and oriented x3, no gross neurological deficit, and patient able to move all 4 extremities. Extremities: No edema. Skin: No rash or ecchymoses. 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 Since then, noted to have slight increase in the blood sugars and also noted to have rise in the HbA1c on the freestyle meg. Reported that he increase the dose of insulin degludec from 15 units to 20 units subcutaneous at bedtime daily. Continued to take Jardiance and monitoring blood sugars through freestyle meg. Denies burning micturition, irritation and any other side effects related to the Jardiance except for increased frequency of micturition. Reported that he is taking amlodipine 10 mg once every day and today noted to have mild increase in the blood pressure at with a systolic blood pressure to 160s and recommended patient to monitor blood pressure at home and recommended that if the blood pressure continues to stay above 140, needed to add other antihypertensive agent and patient agreed to that plan. Last ophthalmology visit was a month ago per patient and reported that everything was normal. Plan: - Recommended to continue current managemnt - Repeat A1c, urine microalbumin creatinine ratio ordered - Refilled Insulin Degludec and Glucose sensor - Started on Metformin 500mg twice daily - Educated on medication compliance, diet and regular physical exercise - Will follow-up in 3 months for further evaluation. (2) Microcytic anemia: Status: Acute Assessment & Plan: Patient had h/o Iron deficiency anemia and took iron supplements As of 11/04/2024, Hb is 14. Last Hb on 07/22/2024 is 16.1, normocytic and normochromic Denies weight loss, early satiety, blood or blackish discoloration of stools. No recent colonoscopies. Plan: - Repeat CBC, iron studies, peripheral smear, stool guaiac is ordered - Will follow-up with the results (3) Essential (primary) hypertension: Status: Acute Assessment & Plan: Patient has a history of hypertension and is on amlodipine 10 mg once daily Not checking blood pressures at home Noted to have blood pressure of 166/75 mmHg in the clinic. Recommended patient to follow-up with the blood pressure measurement at home Plan: - Recommended salt restriction, regular physical exercise - Recommended to monitor blood pressure at home - If blood pressure remains elevated over 140 SBP, recommended to call the clinic and we will add other antihypertensive agent Advanced Care Planning Advance care planning discussed with:: patient Office Procedures [facility] Level of Care Nursing/Assessment Patient Status: Established Patient Nursing Assessment/Reassessment: Medication Reconciliation, Update PMH in EMR and Vital Signs Coordination of Care: Complex Care/Chronic Disease 5 or more, Education Complex Pt/Fam, Consent,records obtained, informed consent, Lab and Imaging orders, Results/Orders obtained and Staff clarify orders Established Patient Charge Established Patient Point Assignment: 120 Established Patient Point Charge: Level 4 (120-155)
== END 2025-02-18 13:32 | disposition home or self-care (01) ==
LOC: HODAHC 13:02
PROVIDERS: Supervising Provider Internal Medicine
DX: E11.621 Type 2 diabetes mellitus with foot ulcer (principal); L97.509 Non-pressure chronic ulcer of other part of unspecified foot with unspecified severity; Z79.84 Long term (current) use of oral hypoglycemic drugs; I10 Essential (primary) hypertension; Z86.2 Personal history of diseases of the blood and blood-forming organs and certain disorders involving the immune mechanism; Z79.4 Long term (current) use of insulin
CPT/HCPCS: 99214; G0463

== ENCOUNTER 2025-04-18 13:18 | Emergency (ER) | payer MEDICARE, MEDICAID, SELFPAY ==
[2025-04-18 13:43] VITALS: BP 160/67; PULSE 92; RESP 16; TEMP 36.4; O2SAT 97
--- NOTE | 2025-04-18 14:00 | PD.EDANKLE ---
Lower Extremity Injury RME/HPI General Chief Complaint: Ankle/Foot Injury Stated Complaint: L) FOOT 1ST/2ND TOES RED W/ DRAINAGE Time Seen by Provider: 04/18/25 13:41 Source: patient Arrival date/time: 04/18/25 13:18 64-year-old male with a history of hypertension, hyperlipidemia, type 2 diabetes, presents to the emergency room with a chief complaint of redness and drainage to his left foot second digit x 2 days Mode of arrival: ambulatory Limitations: no limitations Related Data Previous Rx's ?Medication ?Instructions ?Recorded ferrous sulfate 325 mg (65 mg 325 mg PO TID #90 tabs 11/03/23 iron) tablet,delayed release lisinopril 40 mg tablet 40 mg PO QDAY #30 tabs 11/03/23 Held on 05/21/24. Instructions: Hyperkalemia polyethylene glycol 3350 17 4 g PO QDAY #238 grams 11/03/23 gram/dose oral powder sennosides 8.6 mg capsule (senna) 8.6 mg PO QDAY PRN constipation 11/03/23 #30 caps erythromycin 5 mg/gram (0.5 %) eye 0.5 inch ophthalmic (eye) BID #3.5 12/11/23 ointment grams fluconazole 200 mg tablet 200 mg PO TID #90 tabs 03/23/24 gabapentin 100 mg capsule 300 mg (3 x 100 mg) PO TID 30 days 04/27/24 #270 caps clindamycin HCl 300 mg capsule 300 mg PO TID #30 caps 05/20/24 pentoxifylline 400 mg 400 mg PO TID #30 tabs 05/20/24 tablet,extended release ketoconazole 2 % topical cream 1 applic topical QDAY #60 grams 07/02/24 polyethylene glycol 400 1 % eye 1 drp ophthalmic (eye) BID PRN dry 07/02/24 drops eye(s) #30 mL blood sugar diagnostic (Accu-Chek #100 ea 08/06/24 Marisela Plus test strips) blood-glucose meter (Accu-Chek #1 ea 08/06/24 Guide Glucose Meter) carboxymethylcellulose sodium 1 % 1 drp Both eyes TID #15 mL 08/06/24 eye drops (Artificial Tears (carboxymethylcellulose)) lancets 28 gauge (Acti-Art #100 ea 08/06/24 Lancets) lancets 28 gauge (Acti-Art #100 ea 01/12/25 Lancets) pen needle, diabetic 29 gauge x #100 ea 01/12/25 1/2 (Comfort EZ Pen Milmine) amlodipine 10 mg tablet 10 mg PO QDAY #30 tabs 02/18/25 atorvastatin 40 mg tablet 40 mg PO QHS #30 tabs 02/18/25 blood-glucose sensor (FreeStyle #2 ea 02/18/25 Meg 3 Sensor device) insulin degludec 100 unit/mL (3 15 unit (0.15 mL) subcut QHS 90 02/18/25 mL) subcutaneous pen (Tresiba days #15 mL FlexTouch U-100 insulin) metformin 500 mg tablet 500 mg PO BID #30 tabs 02/18/25 semaglutide 14 mg tablet (Rybelsus) 14 mg PO QDAY #30 tabs 02/18/25 amoxicillin 875 mg-potassium 1 tab PO BID 7 days #14 tabs 04/18/25 clavulanate 125 mg tablet Allergies Allergy/AdvReac Type Severity Reaction Status Date / Time No Known Allergies Allergy Verified 04/18/25 13:20 Review of Systems Review of Systems Systems Reviewed: All systems reviewed, normal except as documented Constitutional Constitutional: Reports system reviewed and no additional complaints, except as documented, Denies fatigue, Denies fever(s), Denies headache(s) and Denies weakness Eyes Eyes: Reports system reviewed and no additional complaints, except as documented, Denies blurry vision and Denies change in vision ENT Ears, Nose, Mouth, and Throat: Reports system reviewed and no additional complaints, except as documented, Denies otalgia, Denies headache(s), Denies nasal congestion, Denies throat swelling and Denies vertigo Cardiovascular Cardiovascular: Reports system reviewed and no additional complaints, except as documented, Denies chest pain, Denies dyspnea and Denies dyspnea on exertion Respiratory Respiratory: Reports system reviewed and no additional complaints, except as documented, Denies chest congestion, Denies cough, Denies dyspnea, Denies dyspnea on exertion and Denies wheezing Gastrointestinal Gastrointestinal: Reports system reviewed and no additional complaints, except as documented, Denies abdominal pain, Denies cramping, Denies nausea and Denies vomiting Genitourinary Genitourinary: Reports system reviewed and no additional complaints, except as documented, Denies dysuria and Denies hematuria Musculoskeletal Musculoskeletal: Reports system reviewed and no additional complaints, except as documented and Denies back pain Integumentary/Breasts Skin/Breast: Reports system reviewed and no additional complaints, except as documented and Reports wounds Neurologic Neurologic: Reports system reviewed and no additional complaints, except as documented, Denies confusion, Denies headache(s), Denies lack of coordination, Denies vertigo and Denies weakness Psychiatric Psychiatric: Reports system reviewed and no additional complaints, except as documented, Denies anxiety, Denies confusion, Denies depression, Denies paranoia, Denies suicidal ideation and Denies tactile hallucinations Endocrine Endocrine: Reports system reviewed and no additional complaints, except as documented and Denies fatigue Hematologic/Lymphatic Hematologic/Lymphatic: Reports system reviewed and no additional complaints, except as documented and Denies lymphadenopathy Allergic/Immunologic Allergic/Immunologic: Reports system reviewed and no additional complaints, except as documented, Denies throat swelling, Denies urticaria and Denies wheezing Past Medical History Past Medical History NEUROLOGIC: Negative Neurological Disorders or Seizures CARDIAC: Positive Cardiac Disorders and Hypertension; Negative Congestive Heart Failure RESPIRATORY: Negative Chronic Obstructive Pulmonary Disease (COPD) GASTROINTESTINAL: Negative Gastrointestinal Disorders or Hepatitis GENITOURINARY: Negative Genitourinary Disorders or Renal Disease MUSCULOSKELETAL: Negative Musculoskeletal Disorders ENT: Negative Cataracts, Glaucoma, Blind, Retinal Detachment, Macular Degeneration, Ear Infection or Deafness ENDOCRINE: Positive Endocrine Disorders and Diabetes Mellitus Type 2; Negative Diabetes Mellitus Type 1 HEMATOLOGIC: Positive Blood Disorders and Anemia OTHER HISTORY: Positive Chicken Pox, Measles and Mumps; Negative Hospitalization, Autoimmune Disease, Down Syndrome, Developmental Delay, Shingles, Falls, Blood Transfusions, Anesthesia Reactions, Organ Transplant, Chemotherapy, Radiation Therapy, Hyperbaric Therapy, MRSA, VRSA, Vancomycin-Resistant Enterococci, Clostridium Difficile or Cancer Family History FAMILY HISTORY: Positive Family Gastrointestinal Problems; Negative Family Psychiatric Problems, Family Respiratory Disorders, Family Cardiac Disorders, Family Cancer, Family Surgery or Family Anesthesia Reaction Surgical History SURGICAL: Negative Cardiac Surgery, Endocrine Surgery, Ear Surgery, Abdominal Surgery, Nephrectomy, Joint Replacement, Neurologic Surgery, Brain Shunt, Vasectomy or Organ Transplant Social History SMOKING STATUS: Never smoker SUBSTANCE USE: does not use ED Exam General Limitations: Present no limitations General appearance: Present alert and in no apparent distress Head Head exam: Present atraumatic Eye Eye exam: Present normal appearance, PERRL and EOMI ENT ENT exam: Present normal exam, normal oropharynx and mucous membranes moist Neck Neck exam: Present normal inspection, full ROM and trachea midline Chest Chest inspection: Present normal inspection and symmetric chest wall rise Respiratory Respiratory exam: Present normal lung sounds bilaterally Cardiovascular Cardiovascular exam: Present regular rate, normal rhythm and normal heart sounds Abdominal Exam Abdominal exam: Present soft and normal bowel sounds; Absent tenderness Extremities Exam Extremities exam: Present normal inspection and full ROM Expanded Lower Extremity Exam Hip/Pelvis exam: Present normal inspection Upper leg exam: Present normal inspection Knee exam: Present normal inspection Lower leg exam: Present normal inspection Ankle exam: Present normal inspection Foot/toe exam: Present normal inspection Top foot image:  1. Erythema and mild eschar Back Exam Back exam: Present normal inspection and full ROM Neurological Exam Neurological exam: Present alert, oriented X3 and CN II-XII intact Psychiatric Psychiatric exam: Present normal affect and normal mood Skin Skin exam: Present warm, dry, intact and normal color Course Quality Measures none Vital Signs Vital signs: Vital Signs Temperature 97.6 F 04/18/25 13:43 Pulse Rate 92 04/18/25 13:43 Respiratory Rate 16 04/18/25 13:43 Blood Pressure 160/67 H 04/18/25 13:43 Pulse Oximetry (%) 97 04/18/25 13:43 Oxygen Delivery Method Room Air 04/18/25 13:43 Extremity Injury, Lower MDM Narrative MDM Narrative:: 64-year-old male with a history of hypertension, hyperlipidemia, type 2 diabetes, presents to the emergency room with a chief complaint of redness and drainage to his left foot second digit x 2 days Patient is hemodynamically stable and in no apparent distress Physical examination shows the patient's left foot second digit erythemic with some mild crusting as well as some mild drainage coming behind the nailbed. At this time the abscess is very mild. Oral antibiotics are sent to the patient's pharmacy. The patient was educated to follow-up with his primary care provider as a referral to orthopedics is indicated. Patient was discharged and educated to follow-up with primary care provider in the next 24 to 48 hours and return to the emergency room for any evidence of worsening signs or symptoms Patient data External records reviewed:: [facility] previous records Clinical information provided by:: patient Social determinants that could affect healthcare access:: none Patient has the following chronic illnesses:: No chronic illness How is presenting disease/condition affected by chronic disease/condition?: no chronic disease Evaluation data The following diagnostics were reviewed and interpreted by me:: lab results and radiology exam(s) Lab and/or radiology exams considered but not ordered:: Labs and radiology exams considered and ordered Interpretation Summary: N/A Medications / Prescriptions Medications or Prescriptions considered but not ordered:: No medication given Medication administrations:: No medication given Consultations Consultation(s) initiated? (list below): No Diagnosis Extremity Injury, Lower Differential Diagnosis: other (Diabetic foot ulcer/cellulitis) Most likely diagnosis given after review of the tests above:: Diabetic foot ulcer Admission Indicated Admission indicated?: not indicated Admission Request Was there a request for admission?: No Disposition Plan Disposition Plan: Discharge Discharge Attestation Discharge Attestation: The patient and all family members were given an opportunity to ask questions and understood the discharge instructions. Discharge instructions specifically effects, indications for sooner follow up or return to the emergency department, and the expected course of current diagnosis. Patient condition: Stable Discharge Plan Plan Patient Disposition: HOME (Self Care) Discharge Disposition comment: Stable Prescriptions/Referrals Prescriptions/Med Rec: New amoxicillin-pot clavulanate 875-125 mg tablet 1 tab PO BID 7 Days Qty: 14 0RF No Action fluconazole 200 mg tablet 200 mg PO TID MDD 600 mg Qty: 90 1RF Rx Instructions: Take 2 tablets in the morning and 1 tablet in the afternoon polyethylene glycol 400 1 % drops 1 drp ophthalmic (eye) BID PRN (Reason: dry eye(s)) Qty: 30 3RF ketoconazole 2 % cream 1 applic topical QDAY Qty: 60 1RF gabapentin 100 mg capsule 300 mg PO TID 30 Days Qty: 270 3RF (DME) blood-glucose meter [Accu-Chek [place] Gl[place] Meter[place] [facility] [place] Instructions .Route Qty: 1 0RF Rx Instructions: As directed (DME) Accu-Chek Marisela Plus test strp Strip See Rx Instructions .Route Qty: 100 3RF Rx Instructions: As directed (DME) lancets [Acti-Art Lancets] 28 gauge misc See Rx Instructions .Route Qty: 100 3RF Rx Instructions: As directed Artificial Tears (cmc) 1 % drops 1 drp Both eyes TID Qty: 15 3RF amlodipine 10 mg tablet 10 mg PO QDAY Qty: 30 3RF atorvastatin 40 mg tablet 40 mg PO QHS Qty: 30 2RF insulin degludec [Tresiba FlexTouch U-100] 100 unit/mL (3 mL) insulin pen 15 unit subcut QHS 90 Days Qty: 15 2RF Rybelsus 14 mg tablet 14 mg PO QDAY Qty: 30 2RF metformin 500 mg tablet 500 mg PO BID Qty: 30 3RF (DME) FreeStyle Meg 3 Sensor Device See Rx Instructions .Route Qty: 2 5RF Rx Instructions: As directed ferrous sulfate 325 mg (65 mg iron) tablet,delayed release (DR/EC) 325 mg PO TID Qty: 90 3RF lisinopril 40 mg tablet 40 mg PO QDAY Qty: 30 5RF polyethylene glycol 3350 17 gram/dose powder 4 g PO QDAY Qty: 238 3RF senna 8.6 mg capsule 8.6 mg PO QDAY PRN (Reason: constipation) Qty: 30 0RF erythromycin 5 mg/gram (0.5 %) ointment 0.5 inch ophthalmic (eye) BID Qty: 3.5 1RF Rx Instructions: Apply 0.5 inches to affected eye twice daily (DME) pen needle, diabetic [Comfort EZ Pen Milmine] 29 gauge x 1/2 needle See Rx Instructions .Route Qty: 100 3RF Rx Instructions: As directed (DME) lancets [Acti-Art Lancets] 28 gauge misc See Rx Instructions .Route Qty: 100 0RF Rx Instructions: As directed clindamycin HCl 300 mg capsule 300 mg PO TID Qty: 30 0RF pentoxifylline 400 mg tablet extended release 400 mg PO TID Qty: 30 0RF Rx Instructions: must administer with a meal/food Problem List Clinical Impression: Diabetic foot infection Patient/Caregiver Discharge Instructions Education Materials: ED Wound Check (Infection) Additional Instructions: Por favor, comun?quese con navarro m?dico de cabecera en las pr?ximas 24 a 48 horas. Se enviaron antibi?ticos a navarro farmacia para tratar la ?lcera del pie diab?ellen. En kemi momento, la ?lcera es muy leve. Si observa enrojecimiento, calor o secreci?n que empeoran, acuda a la berny de emergencias de inmediato. Por favor, comun?quese con navarro m?dico de cabecera, ya que se recomienda christian derivaci?n a podolog?a. Si presenta cualquier signo o s?ntoma que empeore, acuda a la berny de emergencias de inmediato. Print Language: Frisian Stand Alone Forms: Tiny Award Info., Work/School Release, Patient Portal Info Letter PA/ADMINISTRATIVE AND PROGRAM SPECIALIST Supervising Physician PA/ADMINISTRATIVE AND PROGRAM SPECIALIST Supervising Physician: Dr. Meade
== END 2025-04-18 14:07 | disposition home or self-care (01) ==
PROVIDERS: Emergency Provider Nurse Practitioner Family
DX: E11.628 Type 2 diabetes mellitus with other skin complications (principal); L08.9 Local infection of the skin and subcutaneous tissue, unspecified; Z79.4 Long term (current) use of insulin; Z79.84 Long term (current) use of oral hypoglycemic drugs; Z79.85 Long-term (current) use of injectable non-insulin antidiabetic drugs
CPT/HCPCS: 99281